=== PATIENT | female | born 1955 | race Two or more races ===

== ENCOUNTER 2023-02-24 10:08 | Outpatient (REF) | payer MEDICARE, MEDICAID, SELFPAY ==
--- NOTE | ~2023-02-24 | XR_ITS ---
EXAMINATION: XR LUMBOSACRAL SPINE CLINICAL INFORMATION: Back pain COMPARISON: None available. TECHNIQUE: Three views of the lumbosacral spine. FINDINGS: 5 nonrib-bearing lumbar-type vertebral bodies. No acute visible fracture or dislocation. Levocurvature of the mid lumbar spine. Grade 1-2 anterolisthesis of L4 and L5. Mild multilevel degenerative changes with disc space, osteophyte formation, and facet arthropathy. Vertebral body heights and spaces are otherwise maintained. Posterior elements are intact. Paraspinal soft tissues are unremarkable. Atherosclerotic calcifications abdominal aorta. Oval well-circumscribed density measuring 2.5 cm overlying the left mid abdomen, nonspecific and possibly representing renal calculus. XR/XR lumbar spine 2-3V IMPRESSION: 1. No acute visible fracture or dislocation. 2. Levocurvature of the mid lumbar spine. 3. Grade 1-2 anterolisthesis of L4 and L5. 4. Mild multilevel degenerative changes. 5. Oval well-circumscribed density measuring 2.5 cm overlying the left mid abdomen, nonspecific and possibly representing a renal calculus.
== END 2023-02-24 10:09 | disposition home or self-care (01) ==
LOC: HO.XRAY 10:08
PROVIDERS: PCP Internal Medicine; Visit Provider Registered Nurse
DX: M54.9 Dorsalgia, unspecified (principal)
CPT/HCPCS: 72100

== ENCOUNTER 2024-03-01 09:23 | Outpatient (REF) | payer MEDICARE, MEDICAID, SELFPAY ==
[2024-03-01 10:07] LABS: Hematocrit 45.5 % (37.0-47.0); Hemoglobin 15.5 g/dl (12.0-16.0); Mean Corpuscular HGB Conc 34.1 g/dl (31.0-35.0); Mean Corpuscular Hemoglobin 30.5 pg (27.0-33.0); Mean Corpuscular Volume 89.4 fL (80.0-98.0); Mean Platelet Volume 9.5 fL (9.4-12.3); Platelet Count 207 X10*3/uL (160-400); Red Blood Count 5.09 X10*6/uL (4.20-5.50); Red Cell Distribution Width 12.4 % (11.0-16.0)
[2024-03-01 10:49] LABS: Erythrocyte Sedimentation Rate 7 MM/HR (0-20)
[2024-03-01 10:50] LABS: Anion Gap 13 (12-20); Blood Urea Nitrogen 16 mg/dL (9-16); C Reactive Protein < 0.10 mg/dL (< or = 0.50); Calcium 9.9 mg/dL (8.4-10.2); Carbon Dioxide 24 mmol/L (22-29); Chloride 108 mmol/L (96-108); Estimated Glomerular Filt Rate > 60; Glucose Random 93 mg/dL (60-115); Magnesium 2.3 mg/dL (1.6-2.6); Phosphorus 3.6 mg/dL (2.7-4.5); Potassium 4.1 mmol/L (3.3-5.1); Sodium 141 mmol/L (135-145)
[2024-03-01 11:05] LABS: TSH reflex Free T4 0.97 uIU/mL (0.32-4.0)
== END 2024-03-01 09:24 | disposition home or self-care (01) ==
LOC: HO.LAB 09:23
PROVIDERS: PCP Internal Medicine; Visit Provider Registered Nurse
DX: R25.2 Cramp and spasm (principal)
CPT/HCPCS: 36415; 80048; 82550; 83735; 84100; 84443; 85027; 85652; 86140

== ENCOUNTER 2024-09-18 09:37 | Outpatient (REF) | payer MEDICARE, MEDICAID, SELFPAY ==
--- OUTSIDE RECORDS SUMMARY | 2024-09-18 10:02 | XMS_ITS | Encounter Summary ---
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 Report Medical Records [address] [place] [id number] Elsa Berman MD Social History Tobacco Use Types Packs/Day Years Used Date Smoking Tobacco: Never Smokeless Tobacco: Never Alcohol Use Standard Drinks/Week Comments Yes 0 (1 standard drink = 0.6 oz pur e alcohol) rare once a year Sex Assigned at Date Recorded Not on file Job Start Date Occupation Industry Not on file Not on file Not on file documented as of this encounter Plan of Treatment Not on file documented as of this encounter Visit Diagnoses Not on filedocumented in this encounter Care Teams Business Support Liaison Relationship Specialty Start Date End Date Page Hathaway MD PCP - General 12/29/07 10/26/21 Lizet Le MD [address] [place] [address] PCP - General Internal Medicine 10/27/21 documented as of this encounter
[2024-09-18 10:39] LABS: Estimated Average Glucose 131 mg/dL; Hemoglobin A1c % 6.2 % (<6.0); Total Hemoglobin (HGBA1C) 4059.9769 umol/L
== END 2024-09-18 09:38 | disposition home or self-care (01) ==
LOC: HO.LAB 09:37
PROVIDERS: PCP Internal Medicine; Visit Provider Registered Nurse
DX: R25.2 Cramp and spasm (principal); Z13.1 Encounter for screening for diabetes mellitus; G62.9 Polyneuropathy, unspecified
CPT/HCPCS: 36415; 82085; 82550; 83036

== ENCOUNTER 2024-10-04 12:44 | Outpatient (REF) | payer MEDICARE, MEDICAID, SELFPAY ==
--- NOTE | 2024-10-04 | EMG_ITS ---
Impression: Normal motor and sensory nerve conduction velocities in the upper extremities. Normal EMG in the right C5-T1 innervated muscles Please see detailed electrophysiological report MTDD
--- OUTSIDE RECORDS SUMMARY | 2024-10-04 13:39 | XMS_ITS | Clinical Summary ---
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 06/30/19 24 Active blood sugar diagnostic (FreeStyle Lite Strips) test strip 1 Lancet by extracorporeal route 2 (two) times a day. 12/22/19 24 Active blood-glucose meter kit Test blood sugar daily (fasting) 12/31/19 22 Active FREESTYLE LANCETS MISC USE 1 TO CHECK GLUCOSE ONCE DAILY DIRECTED 12/22/19 24 Active fluticasone propion-salmet Bailey (ADVAIR HFA) 230-21 mcg/actuation inhalerIndicat ions:COPD with asthma (CMS/HCC V24, CMS/HCC V28) Inhale 2 puffs by mouth 2 (two) times a day. 3 each 3 05/17/19 25 026 Active umeclidinium (Incruse Ellipta) 62.5 mcg/actuation inhalationIndi cations:COPD with asthma (CMS/HCC V24, CMS/HCC V28) Inhale 1 puff by mouth 1 (one) time each day. 3 each 3 05/17/19 25 026 Active albuterol HFA (Ventolin HFA) 90 mcg/actuation inhalerIndicat ions:COPD with asthma ([facility] V24, [facility] V28) Inhale 2 puffs by mouth every 6 (six) hours if needed for wheezing. 6.7 g 11 05/17/19 25 026 Active budesonide-for moteroL (Breyna) 160-4.5 mcg/actuation inhaler Inhale 2 puffs by mouth 2 (two) times a day. Rinse mouth with water after use to reduce aftertaste and incidence of candidiasis. Do not swallow. 1 each 12 05/30/19 25 026 Active atorvastatin (LIPITOR) 20 mg tablet Take 1 tablet (20 mg total) by mouth at bedtime. at bedtime. 90 tablet 1 06/29/19 25 Active lisinopril (PRINIVIL,ZEST RIL) 40 mg tablet Take 1 tablet (40 mg total) by mouth 1 (one) time each day. 90 each 1 06/29/19 25 Active amLODIPine (NORVASC) 5 mg tablet Take 1 tablet (5 mg total) by mouth 1 (one) time each day. 90 each 1 10/05/19 25 Active bisacodyL (DULCOLAX) 5 mg EC tablet Take 2 tablets by mouth right before beginning bowel prep. See instructions provided by the office 2 tablet 03/14/20 24 025 Discontin ued(Thera py completed ) Active Problems Problem Noted Date Diagnosed Date Microalbuminuria 12/31/2021 TB lung, latent 04/27/2018 Overview (01/27/2024): Per Dr. Hernandez: Chest CT scan without contrast for reevaluation of Lung parenchyma/nodule in March 2019, if is stable, no further surveillance is indicated 2. 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 Stage T1aNx - rad oncologist, Dr. Dominick Chauhan 11/2013: Davinci hysterectomy and BSO and radiation to cuff x 3; no chemo Ganglion cyst 11/13/2013 Vitamin D deficiency 11/30/2011 Cord compression ([facility] V24, [facility] V28) 06/2009 Herniation of cervical intervertebral disc 04/18 Hypertriglyceridemia 03/19/2009 HTN (hypertension), benign 02/26/2009 Encounters Date Type Department Care Team Description 10/04/2024 10:30 AM EDT Office Visit Adult Medicine [address] [address] Narayan Davenport PA HTN (hypertension), benign (Primary Dx) 08/08/2024 1:30 PM EDT Ancillary Procedure [facility] [address] [facility] [address] [place] [address] PICKERING (dyspnea on exertion) from Last 3 Months Immunizations Name Administration Dates Next Due H1N1 Inj Preservative Free 02/26/2009 Influenza Quadravalent, MDCK , 0.5ml, preservative free (Flucelvax) 6mo and older 12/17/2020,01/17/2019 Influenza Quadravalent, MDCK , 0.5ml, with preservative (Flucelvax) 6mo and older 01/05/2017 Influenza trivalent, 0.5mL ( Fluad) 65yo and older 12/11/2023,01/04/2023,12/17/2021 Influenza trivalent, 0.5mL, preservative free (Fluarix; FluLaval; Fluzone) ages 6mo and older (Afluria) 3 years and older 11/30/2019,01/04/2018,12/11/2015,2014,02/02/2014,12/16/2012,11/30/2011,0 12/19/2010,12/23/2009,02/26/2009, 008 Influenza trivalent, with preservative (Fluzone; Afluria) 6mo and older 12/06/2019 Pneumococcal conjugate 13 va lent (Prevnar 13, PCV13) 2mo and older 12/30/2021 Pneumococcal conjugate 20 va lent (Prevnar 20, PCV 20) 2mo and older 01/04/2023 Td Tetanus diptheria (Tdvax) 7yo and older 08/02/2018 Tdap Tetanus diptheria acell ular pertussis (Boostrix; Adacel) 7yo and older 08/18/2015,01/04/2008,01/04/2008 Zoster Live 2016 Surgical History Surgery Date Site/Laterality Comments ROBOTIC ASSISTED HYSTERECTOMY 12/19/2013 PROCEDURE: HISTORICAL ROBOTIC HYSTERECTOMY WITH OR WITHOUT BSO; COMMENT: endometrial adeno CA, Dr. Berman COLONOSCOPY 05/24/2008 PROCEDURE: HISTORICAL COLONOSCOPY; COMMENT: Up to cecum, good preparation, normal colon exam COLONOSCOPY 12/26/2018 PROCEDURE: HISTORICAL COLONOSCOPY; COMMENT: 5 mm polyps x 2: Hyperplastic x1, tubular adenoma x1. Medical History Medical History Date Comments Other and unspecified hyperlipidemia DX:Other and unspecified hyperlipidemia Ganglion cyst 11/13/2013 DX:Ganglion cyst Endometrial cancer (CMS/HCC V24, CMS/HCC V28) DX:Endometrial cancer (HCC) Esophageal reflux DX:Esophageal reflux Abdominal bloating DX:Abdominal bloating Family History Medical History Relation Name Comments Blindness Neg Hx Breast cancer Neg Hx Cataracts Neg Hx Colon cancer Neg Hx Glaucoma Neg Hx Macular degeneration Neg Hx Ovarian cancer Neg Hx Strabismus Neg Hx Relation Name Status Comments Father Mother Alive Alzheimer's Social History Tobacco Use Types Packs/Day Years Used Date Smoking Tobacco: Never Passive Smoke Exposure: Never Smokeless Tobacco: Never Tobacco Cessation:Counseling Given: Not Answered Alcohol Use Standard Drinks/Week Comments Yes 0 (1 standard drink = 0.6 oz pur e alcohol) socially Interpersonal Safety Answer Date Record ed Physical Abuse 03/29/2024 Verbal Abuse 03/29/2024 Comments No Sex and Gender Information Value Date Recorded Sex Assigned at Not on file Legal Sex Female 1:29 PM EST Gender Identity Not on file Sexual Orientation Not on file Obstetrics History Last Filed Vital Signs Vital Sign Reading Time Taken Comments Blood Pressure 140/92 10/04/2024 10:19 AM EDT Pulse 68 10/04/2024 10:19 AM EDT Temperature 36.2 C (97.2 F) 10/04/2024 10:19 AM EDT Respiratory Rate 12 10/04/2024 10:19 AM EDT Oxygen Saturation 95% 05/17/2024 8:45 AM EST Inhaled Oxygen Concentration - - Weight 82.1 kg (181 lb) 10/04/2024 10:19 AM EDT Height 167.6 cm (5' 6 ) 10/04/2024 10:19 AM EDT Body Mass Index 29.21 10/04/2024 10:19 AM EDT Plan of Treatment Upcoming Encounters Date Type Department Care Team (Late st Contact Info) Description 11/08/2024 9:00 AM EDT Appointment Radiology Department - [address] [address] 11/15/2024 8:30 AM EDT Ancillary Procedure Pulmonolgy [address] [phone] 11/15/2024 9:45 AM EDT Office Visit Pulmonol[address] [address] Racquel Galvez MD [address] [place] [phone] 01/17/2025 1:30 PM EDT Office Visit Adult Medicine [address] [phone] Lizet Le MD [address] [place] [phone] Health Maintenance Due Date Last Done Comments RSV Immunization Adult Patients (1 - Risk 60-74 years 1-dose series) 2016 Zoster Vaccines (1 of 2) 07/11/2016 2016 Hepatitis C Screening 02/28/2022 Medicare Annual Wellness Visit 02/28/2022 Social Influencers of Health Screening 02/28/2022 COVID-19 Vaccine ( season) 2023 03/08/2021, 08/09/2020, 07/19/2020 Depression Screening 03/22/2024 Influenza Vaccine (#1) 2024 4, 01/04/2023, 12/17/2021, Additional history exists Falls Risk Assessment 03/29/2025 03/29/2024 Hypertension/CHF/CAD Annual BMP Blood Test 06/28/2025 06/28/2024, 12/24/2023 Breast Cancer Screening 10/26/2025 10/27/19 24, 10/27/2023, 10/20/2022, Additional history exists DTaP,Tdap,and Td Vaccines (5 - Td or Tdap) 08/02/2028 08/02/2018, 08/18/2015, 01/04/2008, Additional history exists Cholesterol Screening (Lipid Panel) 12/23/2028 12/24/2023 Colorectal Cancer Screening: Colonoscopy 03/29/2029 03/29/2024 Osteoporosis Screening (Bone Density Screening) 02/04/2032 02/03/2022 Pneumococcal Vaccine: 50+ Years Completed 01/04/2023, 12/30/2021 HIB Vaccines Aged Out No longer eligi ble based on patient's age to complete this topic HPV Vaccines Aged Out No longer eligi ble based on patient's age to complete this topic Hepatitis A Vaccines Aged Out No long er eligible based on patient's age to complete this topic Hepatitis B Vaccines Aged Out No long er eligible based on patient's age to complete this topic IPV Vaccines Aged Out No longer eligi ble based on patient's age to complete this topic MMR Vaccines Aged Out No longer eligi ble based on patient's age to complete this topic Meningococcal ACWY Vaccine Aged Out N o longer eligible based on patient's age to complete this topic Meningococcal B Vaccine Aged Out No l onger eligible based on patient's age to complete this topic RSV Immunization Patients Under 20 months Aged Out No longer eligible based on patient's age to complete this topic Varicella Vaccines Aged Out No longer eligible based on patient's age to complete this topic Procedures Procedure Name Priority Date/Time Associated Diagnosis Comments TRANSTHORACIC ECHOCARDIOGRAM (TTE) COMPLETE Routine 08/08/2024 2:08 PM EDT PICKERING (dyspnea on exertion) BASIC METABOLIC PANEL Routine 06/28/2024 9:44 AM EDT HTN (hypertension), benign COLONOSCOPY Routine 03/29/2024 1:00 PM EST Personal history of colon polyps, unspecified SCREENING MAMMOGRAPHY BI 2-VIEW BREAST INC CAD Routine 10/27/2023 9:27 AM EDT Encounter for screening mammogram for malignant neoplasm of breast DXA BONE DENSITY STUDY 1+ SITS AXIAL SKEL Routine 02/03/2022 9:31 AM EST Asymptomatic menopausal state from Last 3 Months or Most Recently Relevant to Health Maintenance Results * (ABNORMAL) TRANSTHORACIC ECHOCARDIOGRAM (TTE) COMPLETE (08/08/2024 2:08 PM EDT) Left Atrium Minor Luning 5.8 cm CV PACS Left Atrium Major Luning 6.1 cm CV PACS LA Area Sys (A2C) 23 cm2 CV PACS LA Area Sys (A4C) 21 cm2 CV PACS LA Volume (BP) 67 mL CV PACS RA Area 13.5 cm2 CV PACS RA 2D Volume 33 mL CV PACS Aortic Sinus Valsalva 3.3 cm CV PACS Ascending Aorta 4.3 cm CV PACS IVC Proximal 1.9 cm CV PACS IVC Proximal 0.6 cm CV PACS IVSD 1.3(A) 0.6 - 0.9 cm CV PACS LVIDD 5.1 3.8 - 5.2 cm CV PACS LVIDS 3.2 2.2 - 3.5 cm CV PACS LVOT Diameter 2.1 cm CV PACS LVOT Mean Tomasz 0.9 m/s CV PACS LVOT Mean Grad 4 mmHg CV PACS LVOT Peak VTI 26.2 cm CV PACS LVOT Peak Tomasz 1.4 m/s CV PACS LVOT Peak Gradient 8 mmHg CV PACS LVPWD 1.1(A) 0.6 - 0.9 cm CV PACS MV E' Tissue Velocity Lateral 5 cm/s CV PACS MV E' Tissue Velocity Septal 4 cm/s CV PACS LVOT Area 3.5 cm2 CV PACS LVOT Stroke Volume 91 mL CV PACS E Wave Deceleration Time 275(A) 119 - 242 ms CV PACS MV Peak A Tomasz 0.90 m/s CV PACS MV Peak E Tomasz 0.70 m/s CV PACS PV Acceleration Time 63 ms CV PACS RV Diastolic Basal Dimension 3.3 2.5 - 4.1 cm CV PACS RV S' 11 cm/s CV PACS TAPSE 22 mm CV PACS E/E' Ratio Septal 18 CV PACS E/E' Ratio Averaged 16 CV PACS Relative Wall Thickness ratio 0.42 0.22 - 0.42 CV PACS FS 37 % CV PACS LV Mass 2D 237(A) 66 - 150 g CV PACS LVOT flow 312 mL/s CV PACS E/A Ratio 0.8 0.8 - 2.0 CV PACS E/E' Ratio Lateral 14 CV PACS BSA 1.96 m2 CV PACS LA Volume Index (BP) 34 mL/m2 CV PACS LVIDD Index 2.66 cm/m2 CV PACS LVIDS Index 1.67 cm/m2 CV PACS LV Mass Index 2D 126(A) 44 - 88 g/m2 CV PACS LVOT Stroke Index 0 mL/m2 CV PACS RA 2D Volume Index 17 15 - 27 mL/m2 CV PACS Ascending Aorta Index 2.24 cm/m2 CV PACS RV Free Wall Peak S' 11 cm/s CV PACS RA Major Luning 4.2 cm CV PACS RA Major Luning Index 2.2 2.2 - 2.8 cm/m2 CV PACS MV PHT 80 ms CV PACS Inferior Vena Cava Diameter At Inspiration 0.6 cm CV PACS IVC Inspiration Index 0.31 cm/m2 CV PACS Inferior Vena Cava Diameter At Expiration 1.9 cm CV PACS IVC Expiration Index 0.99 cm/m2 CV PACS Anatomical Region Laterality Modality Ultrasound Narrative 08/09/2024 12:26 PM EDT Left ventricle cavity size is normal. Left ventricular systolic function is in the normal range with an ejection fraction of 65-70%. No regional LV wall motion abnormalities noted. Left ventricle mild concentric hypertrophy. Right ventricle cavity is normal. Right ventricular systolic function is normal. The left atrium is mildly dilated. No hemodynamically significant valve disease. The ascending aorta is dilated (4.3 cm). Left Ventricle Left ventricle cavity size is normal. There is mild concentric hypertrophy. Systolic function is normal with an ejection fraction of 65-70%. There are no regional LV wall motion abnormalities. Indeterminate diastolic function. Right Ventricle Right ventricle cavity appears normal. Systolic function is normal. Left Atrium Left atrium cavity is mildly dilated. Right Atrium Right atrium cavity is normal. IVC/SVC Inferior vena cava structure is normal. RA pressures is estimated to be 3 mmHg (IVC diameter <21 mm and decreases >50% during inspiration). Mitral Valve The leaflets are mildly thickened. There is moderate annular calcification. There is mild regurgitation with a centrally directed jet. There is no significant stenosis noted. Tricuspid Valve Tricuspid valve structure is normal. Tricuspid regurgitation is inadequate for estimation of right ventricular systolic pressure. There is no significant tricuspid valve stenosis. Aortic Valve The aortic valve is trileaflet. The leaflets are not thickened and exhibit normal excursion. There is mild regurgitation with a centrally directed jet. There is no evidence of aortic valve stenosis. Pulmonic Valve The pulmonic valve was not well visualized. No significant pulmonic valve regurgitation. No significant pulmonary valve stenosis noted. Ascending Aorta The ascending aorta is dilated (4.3 cm). Pericardium Pericardium appears normal. There is no pericardial effusion. Study Details Overall the study quality was adequate. Racquel Galvez MD CV ECHO PROCEDURES Final Result * (ABNORMAL) Basic metabolic panel (06/28/2024 9:44 AM EDT) Sodium 138 133 - 145 mmol/L LAB CHEMISTRY METHOD 06/28/2024 2:41 PM [facility] Potassium 4.2 3.5 - 5.5 mmol/L LAB CHEMISTRY METHOD 06/28/2024 2:41 PM [facility] Chloride 106 96 - 110 mmol/L LAB CHEMISTRY METHOD 06/28/2024 2:41 PM [facility] CO2 27 21 - 32 mmol/L LAB CHEMISTRY METHOD 06/28/2024 2:41 PM [facility] Anion Gap 5 3 - 11 LAB CHEMISTRY METHOD 06/28/2024 2:41 PM [facility] Glucose 116(H) 70 - 100 mg/dL LAB CHEMISTRY METHOD 06/28/2024 2:41 PM EDT [facility] BUN 18 5 - 25 mg/dL LAB CHEMISTRY METHOD 06/28/2024 2:41 PM EDT [facility] Creatinine 0.73 0.50 - 1.10 mg/dL LAB CHEMISTRY METHOD 06/28/2024 2:41 PM EDT [facility] eGFR 90 >=60 mL/min/1. 73m2 LAB CHEMISTRY METHOD 06/28/2024 2:41 PM EDT [facility] Comment:Calculation based on the Chronic Kidney Disease Epidemiology Collaboration (CKD-EPI) equation refit without adjustment for race. BUN/Creatinine Ratio 24.7 LAB CHEMISTRY METHOD 06/28/2024 2:41 PM EDT [facility] Calcium 9.6 8.5 - 10.5 mg/dL LAB CHEMISTRY METHOD 06/28/2024 2:41 PM EDT [facility] Blood Venous blood specimen / Unknown Venipuncture / Unknown 06/28/2024 9:44 AM EDT 06/28/2024 9:44 AM EDT Narayan NAIDU LAB BLOOD ORDERABLES Final Res ult [facility] [address] [place] [address], * COLONOSCOPY Anesthesia - [facility]; [facility] ENDOSCOPY (03/29/2024 1:00 PM EST) Anatomical Region Laterality Modality Endoscopy 03/29/2024 12:4 5 PM EST Impressions 03/29/2024 1:06 PM EST - Three diminutive polyps in the transverse colon, removed with a jumbo cold forceps. Resected and retrieved. - Internal hemorrhoids. Recommendation: - Await pathology results. - Repeat colonoscopy in 5 years for surveillance. Narrative 03/29/2024 1:06 PM EST [facility] Patient Name: Luisa Sharma Procedure Date: 03/29/2024 12:45 PM Date of : 1955 Age: 68 Gender: Female Note Status: Finalized Attending MD: Greg Baerd MD, Procedure Date No Time: 03/29/2024 Procedure: Colonoscopy Indications: High risk colon cancer surveillance: Personal history of colonic polyps, Last colonoscopy: December 2018 Providers: Greg Beard MD Referring MD: Greg Beard MD Medicines: Monitored Anesthesia Care Complications: No immediate complications. Estimated blood loss: Minimal. Estimated Blood Loss: Estimated blood loss was minimal. Procedure: Pre-Anesthesia Assessment: - Prior to the procedure, a History and Physical was performed, and patient medications and allergies were reviewed. The patient is competent. The risks and benefits of the procedure and the sedation options and risks were discussed with the patient. All questions were answered and informed consent was obtained. Patient identification and proposed procedure were verified by the physician, the nurse, the mgmt specialist and the roadway technician in the pre-procedure area in the endoscopy suite. Mental Status Examination: alert and oriented. Airway Examination: normal oropharyngeal airway and neck mobility. Respiratory Examination: clear to auscultation. CV Examination: normal. Prophylactic Antibiotics: The patient does not require prophylactic antibiotics. Prior Anticoagulants: The patient has taken no anticoagulant or antiplatelet agents. ASA Grade Assessment: II - A patient with mild systemic disease. After reviewing the risks and benefits, the patient was deemed in satisfactory condition to undergo the procedure. The anesthesia plan was to use monitored anesthesia care (MAC). Immediately prior to administration of medications, the patient was re-assessed for adequacy to receive sedatives. The heart rate, respiratory rate, oxygen saturations, blood pressure, adequacy of pulmonary ventilation, and response to care were monitored throughout the procedure. The physical status of the patient was re-assessed after the procedure. After I obtained informed consent, the scope was passed under direct vision. Throughout the procedure, the patient's blood pressure, pulse, and oxygen saturations were monitored continuously. The Colonoscope was introduced through the anus and advanced to the cecum, identified by appendiceal orifice and ileocecal valve. The colonoscopy was performed without difficulty. The patient tolerated the procedure well. The quality of the bowel preparation was good. Findings: The perianal and digital rectal examinations were normal. Three sessile polyps were found in the transverse colon. The polyps were diminutive in size. These polyps were removed with a jumbo cold forceps. Resection and retrieval were complete. Estimated blood loss was minimal. Internal hemorrhoids were found during retroflexion. The hemorrhoids were Grade I (internal hemorrhoids that do not prolapse). Procedure Code(s): --- Professional --- 48621, Colonoscopy, flexible; with biopsy, single or multiple Diagnosis Code(s): --- Professional --- D12.3, Benign neoplasm of transverse colon (hepatic flexure or splenic flexure) CPT copyright 2020 [employer]. All rights reserved. The codes documented in this report are preliminary and upon workforce management manager review may be revised to meet current compliance requirements. Greg Beard MD 03/29/2024 1:06:14 PM This report has been signed electronically.Greg Beard MD Number of Addenda: 0 Note Initiated On: 03/29/2024 12:45 PM Scope Withdrawal Time: 0 hours 11 minutes 11 seconds Scope In: 12:49:32 PM Scope Out: 1:04:02 PM Endoscopy Department at [facility] - [address] [place] [phone] Procedure Note Greg Beard MD - 03/29/2024 [facility] Patient Name: Luisa Sharma Procedure Date: 03/29/2024 12:45 PM Date of : 1955 Age: 68 Gender: Female Note Status: Finalized Attending MD: Greg Beard MD, Procedure Date No Time: 03/29/2024 Procedure: Colonoscopy Indications: High risk colon cancer surveillance: Personalhistory of colonic polyps, Last colonoscopy: December 2018 Providers: Greg Beard MD Referring MD: Greg Beard MD Medicines: Monitored Anesthesia Care Complications: No immediate complications. Estimated blood loss: Minimal. Estimated Blood Loss: Estimated blood loss was minimal. Procedure: Pre-Anesthesia Assessment: - Prior to the procedure, a History and Physicalwas performed, and patient medications and allergieswere reviewed. The patient is competent. The risks and benefits of the procedure and the sedation optionsand risks were discussed with the patient. Allquestions were answered and informed consent was obtained. Patient identification and proposed procedure were verified by the physician, the nurse, theanesthetist and the roadway technician in the pre-procedure area in the endoscopy suite. Mental Status Examination: alertand oriented. Airway Examination: normal oropharyngeal airway and neck mobility. Respiratory Examination: clear to auscultation. CV Examination: normal. Prophylactic Antibiotics: The patient does notrequire prophylactic antibiotics. Prior Anticoagulants: The patient has taken no anticoagulant or antiplatelet agents. ASA Grade Assessment: II - A patient withmild systemic disease. After reviewing the risks and benefits, the patient was deemed in satisfactory condition to undergo the procedure. The anesthesia plan was to use monitored anesthesia care (MAC). Immediately prior to administration of medications, the patient was re-assessed for adequacy to receive sedatives. The heart rate, respiratory rate, oxygen saturations, blood pressure, adequacy of pulmonary ventilation, and response to care were monitored throughout the procedure. The physical status ofthe patient was re-assessed after the procedure. After I obtained informed consent, the scope was passed under direct vision. Throughout theprocedure, the patient's blood pressure, pulse, and oxygen saturations were monitored continuously. The Colonoscope was introduced through the anus and advanced to the cecum, identified by appendiceal orifice and ileocecal valve. The colonoscopy was performed without difficulty. The patient tolerated the procedure well. The quality of the bowel preparation was good. Findings: The perianal and digital rectal examinations were normal. Three sessile polyps were found in the transverse colon. The polyps were diminutive in size. These polyps were removed with a jumbo cold forceps. Resection and retrieval were complete. Estimatedblood loss was minimal. Internal hemorrhoids were found duringretroflexion. The hemorrhoids were Grade I (internal hemorrhoids that do not prolapse). Procedure Code(s): --- Professional --- 16207, Colonoscopy, flexible; with biopsy, singleor multiple Diagnosis Code(s): --- Professional --- D12.3, Benign neoplasm of transverse colon (hepatic flexure or splenic flexure) CPT copyright 2020 [employer]. All rights reserved. The codes documented in this report are preliminary and upon workforce management manager reviewmay be revised to meet current compliance requirements. Greg Beard MD 03/29/2024 1:06:14 PM This report has been signed electronically.Greg Beard MD Number of Addenda: 0 Note Initiated On: 03/29/2024 12:45 PM Scope Withdrawal Time: 0 hours 11 minutes 11 seconds Scope In: 12:49:32 PM Scope Out: 1:04:02 PM Endoscopy Department at [facility] - [address] [place] [phone] IMPRESSION: - Three diminutive polyps in the transverse colon, removed with a jumbo cold forceps. Resected and retrieved. - Internal hemorrhoids. Recommendation: - Await pathology results. - Repeat colonoscopy in 5 years for surveillance. us Greg Beard MD GI~PROCEDURE ORDERABLES Fin al Result * SCREENING MAMMOGRAPHY BI 2-VIEW BREAST INC CAD (10/27/2023 9:27 AM EDT) Anatomical Region Laterality Modality Radiographic Hanh ging 10/20/2022 7:47 AM EDT Narrative 10/27/2023 5:17 PM EDT This is a summary report. The complete report is available in the patient's medical record. If you cannot access the medical record, please contact the sending organization for a detailed fax or copy. Exam: Screening mammogram Findings: Digital bilateral full-field screening mammography is performed with tomosynthesis and interpreted with the aid of computer-aided detection. Comparison is made with 10/20/2022 and as far back as 10/03/2019. Breast parenchyma is composed of scattered fibroglandular densities. No new suspicious mass, architectural distortion, or suspicious calcifications. Impression: No mammographic evidence of malignancy. BI-RADS 1 - negative Procedure Note Emelia Dumont MD - 01/05/2024 This is a summary report. The complete report is available in thepatient's medical record. If you cannot access the medical record, pleasecontact the sending organization for a detailed fax or copy. Exam: Screening mammogram Findings: Digital bilateral full-field screening mammography is performedwith tomosynthesis and interpreted with the aid of computer-aideddetection. Comparison is made with 10/20/2022 and as far back as10/03/2019. Breast parenchyma is composed of scattered fibroglandular densities. Nonew suspicious mass, architectural distortion, or suspiciouscalcifications. Impression: No mammographic evidence of malignancy. BI-RADS 1 - negative Lizet Le MD IMG XR PROCEDURES Final Result * DXA BONE DENSITY STUDY 1+ SITS AXIAL SKEL (02/03/2022 9:31 AM EST) Anatomical Region Laterality Modality Bone Densitometr y 12/30/2021 9:05 AM EDT Narrative 02/03/2022 4:23 PM EST BONE DENSITY (DEXA) Lumbar Spine T-score is -0.4. (SD relative to 20-29 y/o adult) Z-score is 1.4. (SD relative to age matched peers) This is considered normal by WHO criteria. Left Hip T-score is -0.6. Z-score is 0.9. This is considered normal by WHO criteria. Lateral view of the spine demonstrates vertebral heights to mean maintained. IMPRESSION: This patient is considered to have normal bone density by WHO criteria. The [facility] Department of Internal Medicine recommends using National Osteoporosis Foundation (NOF) guidelines in treatment decisions related to osteoporosis. NOF guidelines suggest considering treatment for postmenopausal women and men aged 50 or older presenting with the following: History of hip or vertebral fracture. T-score = -2.5 (DXA) at the femoral neck, total hip, or spine, after appropriate evaluation to exclude secondary causes. Low bone mass (T-score between -1.0 and -2.5 at the femoral neck or spine) AND a 10-year probability of a hip fracture = 3% OR a 10-year probability of a major osteoporosis-related fracture = 20% based on the [place]-adapted WHO algorithm Please note that all treatment decisions require clinical judgment and consideration of individual patient factors, including patient preferences, co-morbidities, previous drug use, risk factors not captured in the FRAX model (e.g., frailty, falls, vitamin D deficiency, increased bone turnover, interval significant decline in bone density) and possible under- or over-estimation of fracture risk by FRAX. Optional alternative screening schedule based on kaleigh Flores., [facility] April 09, 2011 for patients with osteopenia (based on hip BMD T-score) is as follows: * advanced osteopenia (T scores -2.00 to -2.49), BMD testing every year * moderate osteopenia (T scores -1.50 to -1.99), BMD testing every 5 years mild osteopenia or normal BMD (T scores -1.50 and higher), BMD testing every 15 years Procedure Note Ekaterina Wills MD - 04/26/2023 BONE DENSITY (DEXA) Lumbar Spine T-score is -0.4. (SD relative to 20-29 y/o adult) Z-score is 1.4. (SD relative to age matched peers) This is considered normal by WHO criteria. Left Hip T-score is -0.6. Z-score is 0.9. This is considered normal by WHO criteria. Lateral view of the spine demonstrates vertebral heights to meanmaintained. IMPRESSION: This patient is considered to have normal bone density by WHO criteria. The [facility] Department of Internal Medicine recommendsusing National Osteoporosis Foundation (NOF) guidelines in treatment decisions related toosteoporosis. NOF guidelines suggest considering treatment for postmenopausal women and menaged 50 or older presenting with the following: History of hip or vertebral fracture. T-score = -2.5 (DXA) at the femoral neck, total hip, or spine, afterappropriate evaluation to exclude secondary causes. Low bone mass (T-score between -1.0 and -2.5 at the femoral neck or spine)AND a 10-year probability of a hip fracture = 3% OR a 10-year probability of a majorosteoporosis-related fracture = 20% based on the [place]-adapted WHO algorithm Please note that all treatment decisions require clinical judgment andconsideration of individual patient factors, including patient preferences, co- morbidities,previous drug use, risk factors not captured in the FRAX model (e.g., frailty, falls, vitaminD deficiency, increased bone turnover, interval significant decline in bone density) andpossible under- or over-estimation of fracture risk by FRAX. Optional alternative screening schedule based on kaleigh Flores., [facility] for patients with osteopenia (based on hip BMD T-score) is as follows: * advanced osteopenia (T scores -2.00 to -2.49), BMD testing every year * moderate osteopenia (T scores -1.50 to -1.99), BMD testing every 5years mild osteopenia or normal BMD (T scores -1.50 and higher), BMD testingevery 15 years Magaly NAIDU IMG DXA PROCEDURES Final Result from Last 3 Months or Most Recently Relevant to Health Maintenance Insurance MEDICARE [place] Advance Directives Documents on File Type Date Recorded 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
== END 2024-10-04 12:45 | disposition home or self-care (01) ==
LOC: HO.NEURO 12:44
PROVIDERS: PCP Internal Medicine; Visit Provider Psychiatry & Neurology Neurology
DX: G62.9 Polyneuropathy, unspecified (principal)
CPT/HCPCS: 95885; 95913

== ENCOUNTER → 2024-10-04 12:50 | Outpatient (BNV) | payer MEDICARE, MEDICAID, SELFPAY | PROVIDERS: PCP Internal Medicine; Visit Provider Psychiatry & Neurology Neurology | DX: M79.621 Pain in right upper arm (principal); M79.622 Pain in left upper arm | CPT/HCPCS: 95886; 95913 ==

== ENCOUNTER 2024-12-20 09:12 | Outpatient (AMB) | payer MEDICARE, MEDICAID, SELFPAY ==
--- OUTSIDE RECORDS SUMMARY | 2024-12-15 09:00 | XMS_ITS | Encounter Summary ---
Author Organization [employer] Address [address] [place] [address] Care Team Providers Care Environmental Health Technologist Name Role Phone Lizet Le MD Primary Care Provider [phone] Reason for Visit * Reason Comments Hospital Follow-up Encounter Details Date Type Department Care Team (Late st Contact Info) Description 12/15/2024 9:00 AM EDT Office Visit Adult Medicine [address] [phone] Lizet Le MD [address] [place] [phone] Hospital discharge follow-up (Primary Dx); Acute hypoxemic respiratory failure (CMS/HCC V24, CMS/HCC V28); HTN (hypertension), benign; Mixed hyperlipidemia; Ascending aorta dilatation (CMS/HCC V24) Social History Tobacco Use Types Packs/Day Years Used Date Smoking Tobacco: Never Passive Smoke Exposure: Never Smokeless Tobacco: Never Tobacco Cessation:Counseling Given: Not Answered Alcohol Use Standard Drinks/Week Comments Yes 0 (1 standard drink = 0.6 oz pur e alcohol) socially Interpersonal Safety Answer Date Record ed Physical Abuse Unrecognized value 12/02/2024 Verbal Abuse Unrecognized value 12/02/2024 Comments No Sex and Gender Information Value Date Recorded Sex Assigned at Not on file Legal Sex Female 1:29 PM EST Gender Identity Not on file Sexual Orientation Not on file documented as of this encounter Last Filed Vital Signs Vital Sign Reading Time Taken Comments Blood Pressure 126/78 12/15/2024 9:18 AM EDT Pulse 72 12/15/2024 9:18 AM EDT Temperature 36.2 C (97.2 F) 12/15/2024 9:18 AM EDT Respiratory Rate 14 12/15/2024 9:18 AM EDT Oxygen Saturation 96% 12/15/2024 9:18 AM EDT Inhaled Oxygen Concentration - - Weight 80.3 kg (177 lb) 12/15/2024 9:18 AM EDT Height 165.1 cm (5' 5 ) 12/15/2024 9:18 AM EDT Body Mass Index 29.45 12/15/2024 9:18 AM EDT documented in this encounter Functional Status * Are you deaf or do you have serious difficulty hearing? Answer Date of Assessment Author No 12/01/2024 6:44 PM EDT Carla Calderon RN * Are you blind or do you have serious difficulty seeing, even when wearing glasses? Answer Date of Assessment Author No 12/01/2024 6:44 PM EDT Carla Calderon RN * Do you have serious difficulty walking or climbing stairs? Answer Date of Assessment Author No 12/01/2024 6:44 PM EDT Carla Calderon RN * Do you have serious difficulty dressing or bathing? Answer Date of Assessment Author No 12/01/2024 6:44 PM EDT Carla Calderon RN * Because of a physical, mental, or emotional condition, do you have serious difficulty doing errandsalone such as visiting the doctor? Answer Date of Assessment Author No 12/01/2024 6:44 PM EDT Carla Calderon RN documented as of this encounter Mental Status * Because of a physical, mental, or emotional condition, do you have serious difficulty concentrating, remembering, or making decisions? (5 years old or older) Answer Entry Date Author No 12/01/2024 6:44 PM EDT Carla Calderon RN documented in this encounter Progress Notes * Lizet Le MD - 12/15/2024 9:00 AM EDT CHIEF COMPLAINT: Hospital Follow-up IDENTIFIER: Casie Sharma is a 69 y.o. old female. HPI: Patient presents today for re-evaluation after hospitalization for acute respiratory failure with hypoxia/chronic bronchitis, left hydronephrosis, lung nodule, ascending aorta dilatation/hypertension, hyperlipidemia, prediabetes at [facility] from 12/01 until 12/03. Patient is limited by her son at today's visit. Patient is a 69-year-old female who presented to the ER for shortness of breath. Patient was noted to have O2 sat of 91% on room air requiring O2 supplementation. Underwent EKG which showed PACs, nonspecific T wave abnormality, troponins normal, BNP normal. Respiratory viral panel was negative. Underwent CT chest without contrast multifocal ground glass pulmonary nodules, treated with steroids, bronchodilators, oxygen supplementation with improvement in symptoms. She was able to be weaned off oxygen. Patient's Incruse Ellipta was switched to Dulera as Incruse Ellipta was noted to be contributing to respiratory issues. She was advised outpatient follow-up with pulmonology. Patient had outpatient follow-up with pulmonology and started on Breztri 2 puffs twice a day. Patient reports that she is doing better, using albuterol inhaler and nebulization as needed. She has not been able to get the pessary from the pharmacy as they are out of stock and they are waiting for stock to come in. Left hydronephrosis - Patient was incidentally noted to have left-sided hydronephrosis underwent kidney ultrasound which showed bilateral mild hydronephrosis with bilateral renal calculi measuring 9 mm on right and 22 mm on left. - Patient asymptomatic - Outpatient follow-up with urology, has appointment next week with [facility] Lung nodules - Known finding stable when compared to CAT scan from 10/27/2024 - Following with pulmonology Ascending aorta dilatation Hypertension -Stable at 4.4 cm - On amlodipine and lisinopril Information was extracted from the discharge notes . The history was reviewed for accuracy and confirmed by myself. I have reconciled the current and discharge meds. ROS: See HPI PAST MEDICAL HISTORY: Patient Active Problem List Diagnosis Date Noted Ascending aorta dilatation (CMS/HCC V24) 12/15/2024 Asthma exacerbation 12/01/2024 Microalbuminuria 12/31/2021 TB lung, latent 04/27/2018 Borderline diabetes 06/30/2016 Radiculopathy of cervical spine 04/22/2016 Heartburn 01/16/2015 [place] [place] [facility] [place] 12/07/2013 Ganglion cyst 11/13/2013 Vitamin D deficiency 11/30/2011 Cord compression [place] [place] [facility] [place] 04/25/2009 Herniation of cervical intervertebral disc 04/18/2009 Hypertriglyceridemia 03/19/2009 HTN (hypertension), benign 02/26/2009 Past Surgical History: Procedure Laterality Date COLONOSCOPY 05/24/2008 PROCEDURE: HISTORICAL COLONOSCOPY; COMMENT: Up to cecum, good preparation, normal colon exam COLONOSCOPY 12/26/2018 PROCEDURE: HISTORICAL COLONOSCOPY; COMMENT: 5 mm polyps x 2: Hyperplastic x1, tubular adenoma x1. ROBOTIC ASSISTED HYSTERECTOMY 12/19/2013 PROCEDURE: HISTORICAL ROBOTIC HYSTERECTOMY WITH OR WITHOUT BSO; COMMENT: endometrial adeno [place], Dr. Berman SOCIAL HISTORY: Social History Tobacco Use Smoking status: Never Passive exposure: Never Smokeless tobacco: Never Substance Use Topics Alcohol use: Yes Comment: socially FAMILY HISTORY: Family History Problem Relation Name Age of Onset Blindness Neg Hx Cataracts Neg Hx Glaucoma Neg Hx Macular degeneration Neg Hx Strabismus Neg Hx Colon cancer Neg Hx Ovarian cancer Neg Hx Breast cancer Neg Hx Family Status Relation Name Status Neg Hx (Not Specified) Mother Alive Alzheimer's Father No partnership data on file MEDICATIONS DISCONTINUED/REORDERED: Medications Discontinued During This Encounter Medication Reason predniSONE (DELTASONE) 10 mg tablet Therapy completed cefpodoxime (VANTIN) 200 mg tablet Therapy completed ACTIVE MEDICATIONS: Outpatient Medications Marked as Taking for the 12/15/24 encounter (Office Visit) with Lizet Le MD Medication Sig Dispense Refill albuterol 2.5 mg /3 mL (0.083 %) nebulizer solution Take 3 mL (2.5 mg total) by nebulization every 6 (six) hours if needed for wheezing. 75 mL 11 albuterol HFA (Ventolin HFA) 90 mcg/actuation inhaler Inhale 2 puffs by mouth every 6 (six) hours if needed for wheezing. 6.7 g 11 amitriptyline (ELAVIL) 10 mg tablet Take 1 tablet (10 mg total) by mouth at bedtime. at bedtime amLODIPine (NORVASC) 5 mg tablet Take 1 tablet (5 mg total) by mouth 1 (one) time each day. 90 each1 atorvastatin (LIPITOR) 20 mg tablet TAKE 1 TABLET BY MOUTH AT BEDTIME 90 tablet 1 blood-glucose meter kit Test blood sugar daily (fasting) xhnwpieoix-iispguzq-oblcyjhebn (Breztri Aerosphere) 160-9-4.8 mcg/actuation HFA aerosol inhaler inhaler Inhale 2 puffs by mouth 2 (two) times a day. 96.3 g 3 cetirizine (ZyrTEC) 10 mg tablet Take 1 tablet (10 mg total) by mouth 1 (one) time each day. diclofenac (VOLTAREN) 50 mg EC tablet Take 1 tablet (50 mg total) by mouth 2 (two) times a day if needed. fluticasone propionate (FLONASE) 50 mcg/actuation nasal spray Administer 2 sprays into affected nostril(s). FREESTYLE LANCETS MISC USE 1 TO CHECK GLUCOSE ONCE DAILY DIRECTED lisinopril (PRINIVIL,ZESTRIL) 40 mg tablet Take 1 tablet by mouth once daily 90 tablet 0 ALLERGIES: Latex PHYSICAL EXAM: Blood pressure 126/78, pulse 72, temperature 36.2 ??C (97.2 ??F), temperature source Temporal, resp. rate 14, height 1.651 m (65 ), weight 80.3 kg (177 lb), SpO2 96%. Body mass index is 29.45 kg/m??.Plan is deferred until next visit APPEARANCE: Alert and in no acute distress EYES: PERRLA, conjunctiva and sclera normal HEART: RRR with normal S1 and S2, no murmurs, no gallops, no JVD appreciated LUNG: clear to auscultation bilaterally BACK: no pain to palpation EXTREMITIES: Extremities warm and well perfused without clubbing, cyanosis, or edema NEURO: Awake, alert and oriented x 3 and Normal gait SKIN: Skin color, texture, turgor normal. No rashes or lesions. PSYCH: Stable mood. Denies SI/HI LABS: Lab Results Component Value Date WBC 5.3 12/02/2024 HGB 14.0 12/02/2024 HCT 41.7 12/02/2024 MCV 88.3 12/02/2024 PLT 235 12/02/2024 Lab Results Component Value Date NA 141 12/02/2024 K 4.1 12/02/2024 CL 108 12/02/2024 CO2 26 12/02/2024 GLUCOSE 186 (H) 12/02/2024 BUN 16 12/02/2024 CREATININE 0.74 12/02/2024 CALCIUM 9.3 12/02/2024 PROT 7.2 12/01/2024 ALBUMIN 4.1 12/01/2024 BILITOT 0.9 12/01/2024 AST 31 12/01/2024 ALT 55 12/01/2024 MG 2.1 12/01/2024 ALKPHOS 93 12/01/2024 EGFR 88 12/02/2024 IMAGING: IMPRESSION: 1. Hospital discharge follow-up 2. Acute hypoxemic respiratory failure (CMS/HCC V24, CMS/HCC V28) 3. HTN (hypertension), benign 4. Mixed hyperlipidemia 5. Ascending aorta dilatation (CMS/HCC V24) PLAN: Patient is a 69-year-old female who presented to the ER for shortness of breath. Patient was noted to have O2 sat of 91% on room air requiring O2 supplementation. Underwent EKG which showed PACs, nonspecific T wave abnormality, troponins normal, BNP normal. Respiratory viral panel was negative. Underwent CT chest without contrast multifocal ground glass pulmonary nodules, treated with steroids, bronchodilators, oxygen supplementation with improvement in symptoms. She was able to be weaned off oxygen. Patient's Incruse Ellipta was switched to Dulera as Incruse Ellipta was noted to be contributing to respiratory issues. She was advised outpatient follow-up with pulmonology. Patient had outpatient follow-up with pulmonology and started on Breztri 2 puffs twice a day. Patient reports that she is doing better, using albuterol inhaler and nebulization as needed. She has not been able to get the pessary from the pharmacy as they are out of stock and they are waiting for stock to come in. Left hydronephrosis - Patient was incidentally noted to have left-sided hydronephrosis underwent kidney ultrasound which showed bilateral mild hydronephrosis with bilateral renal calculi measuring 9 mm on right and 22 mm on left. - Patient asymptomatic - Outpatient follow-up with urology, has appointment next week with [facility] Lung nodules - Known finding stable when compared to CAT scan from 10/27/2024 - Following with pulmonology Ascending aorta dilatation Hypertension -Stable at 4.4 cm - On amlodipine and lisinopril Medication and lab orders: No orders of the defined types were placed in this encounter. Other orders: None Lizet Le MD on 12/15/2024 at 9:45 AM EDT documented in this encounter Plan of Treatment Upcoming Encounters Date Type Department Care Team (Late st Contact Info) Description 01/17/2025 1:30 PM EDT Office Visit Adult Medicine [address] [phone] Lizet Le MD [address] [place] [address] 04/09/2025 9:00 AM EST Office Visit Pulmonology - [address] [phone] Racquel Galvez MD [address] [phone] documented as of this encounter Visit Diagnoses Diagnosis Hospital discharge follow-up- Primary Other follow-up examination Acute hypoxemic respiratory failure (CMS/HCC V24, CMS/HCC V28) HTN (hypertension), benign Essential hypertension, benign Mixed hyperlipidemia Ascending aorta dilatation (CMS/HCC V24) Thoracic aneurysm without mention of rupture documented in this encounter Discontinued Medications Medication Sig Discontinue Reason Start Date End Da te predniSONE (DELTASONE) 10 mg tablet Take 4 tablets (40 mg total) by mouth 1 (one) time each day for 2 days, THEN 3 tablets (30 mg total) 1 (one) time each day for 2 days, THEN 2 tablets (20 mg total) 1 (one) time each day for 2 days, THEN 1 tablet (10 mg total) 1 (one) time each day for 2 days. Therapy completed 12/03/2024 12/15/2024 cefpodoxime (VANTIN) 200 mg tablet Take 1 tablet (200 mg total) by mouth 2 (two) times a day for 5 days. Therapy completed 12/03/2024 12/15/2024 documented as of this encounter Care Teams Environmental Health Technologist Relationship Specialty Start Date End Date Lizet Le MD [address] [place] [phone] PCP - General Internal Medicine 10/27/21 documented as of this encounter
--- NOTE | 2024-12-20 09:19 | MHC.OFFVIS ---
Intake Visit Reasons: AFTER EMG/PN Counter Pocket Trimmer Required: Yes Counter Pocket Trimmer Services: Counter Pocket Trimmer Offered & Declined (son to translate) Accompanied by: Son Allergies No Known Allergies Allergy (Verified 12/20/24 09:19) Medication List - Last Reconciled 12/20/24 by Katyh Vigil CNP albuterol sulfate mg inhalation Q6H PRN amitriptyline 10 mg PO BEDTIME amlodipine 5 mg PO DAILY atorvastatin 20 mg PO BEDTIME fviwlowclx-hqqxuehv-ykkkbtjiiu 160-9-4.8 mcg/actuation (Breztri Aerosphere) inhalations inhalation cetirizine mg PO diclofenac sodium 50 mg PO BID PRN ipratropium bromide 17 mcg/actuation (Atrovent HFA) 2 puffs inhalation QID lisinopril 40 mg PO DAILY nystatin 1 appl topical TID HPI Comments Details: 69-year-old woman with prediabetes, painful cramping in legs since 2019, and numbness/tingling in feet beginning around 09/2022 with NCV/EMG revealing early peripheral neuropathy. She was doing about the same. She reports continuing numbness to left hand and last four fingers. She feels left hand is getting weaker, sometimes dropping objects. She occasionally has pain in left hand that wakes her up at night. No neck or shoulder pain. Numbness and tingling to left toes is unchanged. Leg cramps are better. No falls. She is diclofenac as needed for back pain. [facility] Medical History (Updated 12/20/24 @ 09:59 by Kathy Vigil CNP) Prediabetes Hyperlipidemia Hypertension Review of Systems Const Denies chills, Denies daytime sleepiness, Reports difficulty sleeping, Denies fatigue, Denies fever(s), Denies frequent falls, Denies headache(s), Denies increased appetite, Denies poor appetite, Denies snoring, Denies weakness, Denies weight gain and Denies weight loss Eyes Denies loss of vision ENT Denies vertigo, Denies dizziness, Denies headache(s) and Reports neck pain Card Denies chest pain at rest, Denies chest pain with activity, Denies syncope, Denies leg edema, Denies palpitations, Denies dyspnea and Denies dyspnea on exertion Resp Denies cough, Denies dyspnea, Denies dyspnea on exertion and Denies snoring GI Denies abdominal pain, Denies constipation, Denies heartburn, Denies diarrhea and Denies nausea Denies urinary frequency, Denies urinary incontinence and Denies urinary urgency Musc Denies abnormal gait, Denies back pain, Denies myalgias, Reports arthralgias, Reports neck pain, Reports numbness and Reports tingling Neuro Denies abnormal gait, Denies vertigo, Denies dizziness, Denies syncope, Denies frequent falls, Denies headache(s), Denies lack of coordination, Denies loss of vision, Denies memory loss, Reports numbness, Denies Other visual disturbances, Denies restless legs, Denies seizure-like activity, Reports tingling, Denies paresthesias, Denies tremor(s) and Denies weakness Psych Denies anxiety, Denies depression, Denies auditory hallucinations, Denies memory loss and Denies visual hallucinations Endo Denies fatigue and Denies palpitations Physical Exam Const Other: General Appearance:? normal, in no acute distress. Heart:? S1, S2 normal, no murmurs. Lungs:? clear anteriorly and posteriorly. Musculoskeletal:? normal. Extremities:? no edema. Psych:? alert, oriented, cognitive function intact, cooperative with exam. Neuro Other: Abnormal Neurological Findings:?Absent reflexes in LE. 5-/5 L hims coder. Mental Status: alert and oriented X 3. Normal attention, orientation, memory, and affect. Cranial Nerves: Pupils are equal, round, and reactive to light. External ocular muscles are intact. Visual sainz are full, no ptosis. Face is symmetrical, no facial weakness or droop. Facial sensations are normal. Tongue protrudes in midline. Palate elevates symmetrically. Shoulder shrugging is normal Motor Examination: As above. Sensory Exam: Normal light touch, temperature, pinprick, vibration, and joint-position sensations. Rhomberg sign is absent. Coordination: No ataxia. No titubation. Gait Exam: Within normal limits. Cerebellar Signs: Elcpuz-si-lgjg is okay. Extrapyramidal System: No tremor, rigidity with normal facial expressions. No bradykinesia. No bradyphrenia. Normal arm swing and posture. No propulsion or retropulsion. Speech: Normal. Results Reviewed Results Reviewed: Laboratory Tests 09/18/24 10:00 Hemoglobin A1c % 6.2 H Total Creatine Kinase 390 H Aldolase 9.0 H NCV/EMG UE 10/04/2024: Normal motor and sensory nerve conduction velocities in the upper extremities. Normal EMG in the right C5-T1 innervated muscles 01/18/23 NCV/EMG ALL Normal motor and sensory nerve conduction velocities in the upper extremities. Prolonged motor distal latencies suggestive of early neuropathy. Normal EMG in the left L4-S1 innervated muscles. 02/2023 Lumbar spine XR: mild degenerative changes 02/2024 labs ok, mildly elevated CPK (182) Assessment & Plan Assessment & Plan (1) Peripheral neuropathy: Code(s): G62.9 - Polyneuropathy, unspecified Category: Medical Qualifiers: Peripheral neuropathy type: polyneuropathy, unspecified Qualified Code(s): G62.9 - Polyneuropathy, unspecified Plan: NCV/EMG UE results reviewed - normal. Lab results reviewed - A1c slightly elevated, follow up with PCP for further management. Reviewed labs ordered. Continue amitriptyline 10mg 1 tablet at bedtime. (2) Lumbar disc disease: Code(s): M51.9 - Unspecified thoracic, thoracolumbar and lumbosacral intervertebral disc disorder Category: Medical Plan: Continue diclofenac 50mg 1 tablet as needed twice a day for pain. Plan Meds tried: gabapentin (GI upset), amitriptyline (GI upset with 20mg), meloxicam did not help back pain Orders: Orders Immunofixation Pnl, Serum Today G62.9 - Polyneuropathy, unspecified Creatine Kinase Total Today G62.9 - Polyneuropathy, unspecified Lyme IgG/IgM w/reflex to WB Today G62.9 - Polyneuropathy, unspecified Vitamin B12 and Folate Today G62.9 - Polyneuropathy, unspecified QUOC Reflex Titer and Pattern Today G62.9 - Polyneuropathy, unspecified Aldolase Today G62.9 - Polyneuropathy, unspecified Medications: New amitriptyline 10 mg PO BEDTIME 90 tabs 1RF 90 days diclofenac sodium 50 mg PO BID PRN 60 tabs 2RF pain 30 days Coding Level of Care Code Est Pt Level 4 (64380) Diagnoses Peripheral polyneuropathy G62.9 Peripheral neuropathy type: polyneuropathy, unspecified Lumbar disc disease M51.9
--- OUTSIDE RECORDS SUMMARY | 2024-12-20 09:57 | XMS_ITS | Encounter Summary ---
Author Organization [employer] Address [address] [place] [address] Care Team Providers Care Mortgage Branch Manager Name Role Phone Lizet Le MD Primary Care Provider [phone] Reason for Visit * Reason Onset Date Comments Medication 11/30/2024 Encounter Details Date Type Department Care Team ([facility] st Contact Info) Description 11/30/2024 Telephone Pulmonology - [place] 175 [facility] [address] [place] [phone] Racquel Galvez MD [address] [phone] Social History Tobacco Use Types Packs/Day Years Used Date Smoking Tobacco: Never Passive Smoke Exposure: Never Smokeless Tobacco: Never Alcohol Use Standard [...] on file documented as of this encounter Functional Status * Calculated C-SSRS Risk Score (Lifetime/Recent) Answer Date of Assessment Author No Risk Indicated 12/01/2024 5:49 PM EDT Selene Woody RN * [place] Suicide Severity Rating Scale (Screener/Recent Self-Report) Question Answer Date of Assessment Author 1. Wish to be (Past 1 Month) No 5:49 PM EDT Selene Woody RN 2. Non-Specific Active Suici izzy Thoughts (Past 1 Month) No 12/01/2024 5:49 PM EDT Selene Woody, REJI 6. Suicidal Behavior (Lifetime) No 5:49 PM EDT Selene Woody RN documented as of this encounter Progress Notes * Brittney Ritter MA - 11/30/2024 10:59 AM EDT Called [facility] [employer]. Was informed patient is eligible for Medicare Plan B coverage for Albuterol. I reached out to pharmacy to have them run the prescription under Medicare plan B and was given the confirmation that the patient is covered for Albuterol. * Hiral Renae MA - 11/30/2024 10:42 AM EDT Called [facility] [employer]. Was informed patient is eligible for Medicare Plan B coverage for Albuterol. I reached out to pharmacy to have them run the prescription under Medicare plan B and was given the confirmation that the patient is covered for Albuterol. * Vandana Alicea - 11/30/2024 9:48 AM EDT [employer] rx fax received notice of denial of medicare part d for albuterol sulfate Attached to encounter documented in this encounter Plan of Treatment Upcoming Encounters Date Type Department Care Team (Late st Contact Info) Description 01/17/2025 1:30 PM EDT Office Visit Adult Medicine [address] [phone] Lizet Le MD [address] [place] [address] 04/09/2025 9:00 AM EST Office Visit Pulmonology - [place] 175 [facility] [address] [place] [phone] Racquel Galvez MD 175 [facility] [address] [place] [address] documented as of this encounter Visit Diagnoses Not on filedocumented in this encounter Additional Health Concerns Infection Onset Date Last Indicated Resolved Time Respiratory Rule-Out 12/01/2024 12/01/2024 025 10:47 PM EDT COVID-19 Rule-Out 12/01/2024 12/01/2024 12/01/2024 10:47 PM EDT Respiratory Rule-Out 12/02/2024 12/02/2024 025 12:06 PM EDT documented as of this encounter Care Teams Mortgage Branch Manager Relationship Specialty Start Date End Date Lizet Le MD [address] [place] [phone] PCP - General Internal Medicine 10/27/21 documented as of this encounter
--- OUTSIDE RECORDS SUMMARY | 2024-12-20 09:57 | XMS_ITS ---
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 Hernandez: Chest CT scan without contrast for reevaluation of Lung parenchyma/nodule in March 2019, if is stable, no further surveillance is indicated 2. 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 Stage T1aNx - rad oncologist, Dr. Dominick Chauhan 11/2013: Davinci hysterectomy and BSO and radiation to cuff x 3; no chemo Ganglion cyst 11/13/2013 Vitamin D deficiency 11/30/2011 Cord compression ([facility] V24, [facility] V28) 06/2009 Herniation of cervical intervertebral disc 04/18 Hypertriglyceridemia 03/19/2009 HTN (hypertension), benign 02/26/2009 Current Treatment and Therapy Plans No current plan information found. Past Treatment and Therapy Plans No past plan information found. Lifetime Dose Tracking * Chemical Lifetime Dose Automatic Entry Manual Entr y CTDIvol 13.84 mGy 13.84 mGy 0 mGy
--- OUTSIDE RECORDS SUMMARY | 2024-12-20 09:57 | XMS_ITS | Encounter Summary ---
Author Organization [facility] [place] [address] Care Team Providers Care Tug Boat Captain Name Role Phone Lizet Le MD Primary Care Provider [phone] Reason for Visit * Reason Onset Date Comments Medication Problem 11/21/2024 Encounter Details Date Type Department Care Team ([facility] st Contact Info) Description 11/21/2024 Telephone Pulmonology - [place] 175 [facility] [address] [place] [phone] Racquel Galvez MD [address] [address] Social History Tobacco Use Types Packs/Day Years Used Date Smoking Tobacco: Never Passive Smoke Exposure: Never Smokeless Tobacco: Never Alcohol Use Standard Drinks/Week Comments Yes 0 (1 standard drink = 0.6 oz pur e alcohol) socially Interpersonal Safety Answer Date Record ed Physical Abuse Unrecognized value 03/29/2024 Verbal Abuse Unrecognized value 03/29/2024 Comments No Sex and Gender Information Value Date Recorded Sex Assigned at Not on file Legal Sex Female 1:29 PM EST Gender Identity Not on file Sexual Orientation Not on file documented as of this encounter Progress Notes * Racquel Galvez MD - 11/23/2024 5:54 PM EDT Please leave message with sonHans. * Brittney Ritter MA - 11/23/2024 3:31 PM EDT Unable to leave message vm not set up * Racquel Galvez MD - 11/23/2024 8:20 AM EDT Similar to other message, please inform patient Spiriva, has been changed to Atrovent 2 puffs 4 times a day, per health insurance's medication formulary. * Marifer Hogan - 11/21/2024 9:30 AM EDT Patient son called to inform provider that patient insurance did not cover her SPIRIVA RESPIMAT - and patient does not do well with powder inhaler please advice and send alternative documented in this encounter Plan of Treatment Upcoming Encounters Date Type Department Care Team (Late st Contact Info) Description 01/17/2025 1:30 PM EDT Office Visit Adult Medicine [address] [phone] Lizet Le MD [address] [place] [address] 04/09/2025 9:00 AM EST Office Visit Pulmonology - [place] [address] [phone] Racquel Galvez MD [address] [address] documented as of this encounter Visit Diagnoses Not on filedocumented in this encounter Additional Health Concerns Infection Onset Date Last Indicated Resolved Time Respiratory Rule-Out 12/01/2024 12/01/2024 025 10:47 PM EDT COVID-19 Rule-Out 12/01/2024 12/01/2024 12/01/2024 10:47 PM EDT Respiratory Rule-Out 12/02/2024 12/02/2024 025 12:06 PM EDT documented as of this encounter Care Teams Tug Boat Captain Relationship Specialty Start Date End Date Lizet Le MD [address] [place] [phone] PCP - General Internal Medicine 10/27/21 documented as of this encounter
--- OUTSIDE RECORDS SUMMARY | 2024-12-20 09:57 | XMS_ITS ---
Author Name [facility] Organization Unknown Care Team Organization Name Specialty Phone Email Start Date End Da te [facility] 11/08/2024 [facility] Lizet Le Primary Care 03/03/2023 024 [facility] Magaly Hernandez Primary Care 08/28/20222023 [facility] Page Hathaway Primary Care 01/27/202210/20
--- OUTSIDE RECORDS SUMMARY | 2024-12-20 09:58 | XMS_ITS ---
Author Organization [facility] Address [address] [place] [address] Phone Care Team Providers Care Bottom Finisher Name Role Phone Lizet Le MD Primary Care Provider [phone] Transitional Care Management Status:Ongoing (Active) Start date:12/03/2024 Enrollment date:12/04/2024 Enrollment reason:Identified using hospital discharge data Related social drivers of health:Housing Instability, Food Access & Nutrition, Access to Healthcare, Health Literacy, Financial Risk, Transportation, Social Isolation, Food Risk, Dependent Care, Education, Employment and Income, [place] [facility] Literacy, Living Situation Case Team Name Relationship Phone Nadja Nice LPN(Responsible Staff) Care Manag er [phone] Continued Care and Services Coordination
--- OUTSIDE RECORDS SUMMARY | 2024-12-20 09:58 | XMS_ITS | Clinical Summary ---
Author Organization [facility] Address [address] [place] [address] Phone Care Team Providers Care Juvenile Justice Specialist Name Role Phone Lizet Le MD Primary Care Provider Allergies Active Allergy Reactions Criticality Noted Date Comments Latex Rash Low 05/29/2014 Medications fluticasone propionate (FLONASE) 50 mcg/actuation nasal spray Administer 2 sprays into affected nostril(s). 024 Active blood-glucose meter kit Test blood sugar daily (fasting) 022 Active FREESTYLE LANCETS MISC USE 1 TO CHECK GLUCOSE ONCE DAILY DIRECTED 024 Active albuterol HFA (Ventolin HFA) 90 mcg/actuation inhalerIndicati ons:COPD with asthma ([facility] V24, [facility] V28) Inhale 2 puffs by mouth every 6 (six) hours if needed for wheezing. 6.7 g 11 025 2025 Active amLODIPine (NORVASC) 5 mg tablet Take 1 tablet (5 mg total) by mouth 1 (one) time each day. 90 each 1 025 Active albuterol 2.5 mg /3 mL (0.083 %) nebulizer solutionIndicat ions:COPD exacerbation ([facility] V24, [facility] V28) Take 3 mL (2.5 mg total) by nebulization every 6 (six) hours if needed for wheezing. 75 mL 11 025 2025 Active amitriptyline (ELAVIL) 10 mg tablet Take 1 tablet (10 mg total) by mouth at bedtime. at bedtime Active diclofenac (VOLTAREN) 50 mg EC tablet Take 1 tablet (50 mg total) by mouth 2 (two) times a day if needed. Active cetirizine (ZyrTEC) 10 mg tablet Take 1 tablet (10 mg total) by mouth 1 (one) time each day. Active budesonide-glyc opyr-formoterol (Breztri Aerosphere) 160-9-4.8 mcg/actuation HFA aerosol inhaler inhalerIndicati ons:COPD with asthma ([facility] V24, [facility] V28),Lung nodules Inhale 2 puffs by mouth 2 (two) times a day. 96.3 g 3 025 2025 Active lisinopril (PRINIVIL,ZESTR IL) 40 mg tablet Take 1 tablet by mouth once daily 90 tablet Active atorvastatin (LIPITOR) 20 mg tablet TAKE 1 TABLET BY MOUTH AT BEDTIME 90 tablet 1 Active blood sugar diagnostic (FreeStyle Lite Strips) test strip 1 Lancet by extracorporeal route 2 (two) times a day. 024 2024 Discontinued fluticasone propion-salmete roL (ADVAIR HFA) 230-21 mcg/actuation inhalerIndicati ons:COPD with asthma ([facility] V24, [facility] V28) Inhale 2 puffs by mouth 2 (two) times a day. 3 each 3 025 2024 Discontinued umeclidinium (Incruse Ellipta) 62.5 mcg/actuation inhalationIndic ations:COPD with asthma ([facility] V24, [facility] V28) Inhale 1 puff by mouth 1 (one) time each day. 3 each 3 02/26/2024 Discontinued(S top Taking at Discharge) budesonide-form oteroL (Breyna) 160-4.5 mcg/actuation inhaler Inhale 2 puffs by mouth 2 (two) times a day. Rinse mouth with water after use to reduce aftertaste and incidence of candidiasis. Do not swallow. 1 each 025 2024 Discontinued atorvastatin (LIPITOR) 20 mg tablet Take 1 tablet (20 mg total) by mouth at bedtime. at bedtime. 90 tablet 1 025 2024 Discontinued lisinopril (PRINIVIL,ZESTR IL) 40 mg tablet Take 1 tablet (40 mg total) by mouth 1 (one) time each day. 90 each 025 2024 Discontinued tiotropium (Spiriva Respimat) 2.5 mcg/actuation inhalation sprayIndication s:COPD with asthma (CMS/HCC V24, CMS/HCC V28) Inhale 2 puffs by mouth 1 (one) time each day. 1 each 025 2024 Discontinued ipratropium HFA (Atrovent HFA) 17 mcg/actuation inhaler Inhale 2 puffs by mouth 4 (four) times a day. 38.7 g 3 025 2024 Discontinued predniSONE (DELTASONE) 10 mg tablet Take 4 tablets (40 mg total) by mouth 1 (one) time each day for 2 days, THEN 3 tablets (30 mg total) 1 (one) time each day for 2 days, THEN 2 tablets (20 mg total) 1 (one) time each day for 2 days, THEN 1 tablet (10 mg total) 1 (one) time each day for 2 days. 20 each 025 2024 Discontinued(T herapy completed) cefpodoxime (VANTIN) 200 mg tablet Take 1 tablet (200 mg total) by mouth 2 (two) times a day for 5 days. 10 each 025 2024 Discontinued(T herapy completed) mometasone-form oterol (DULERA 100) 100-5 mcg/actuation inhaler Inhale 2 puffs by mouth 2 (two) times a day. Rinse mouth with water after use to reduce aftertaste and incidence of candidiasis. Do not swallow. 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 Stage T1aNx - rad oncologist, Dr. Dominick Chauhan 11/2013: Davinci hysterectomy and BSO and radiation to cuff x 3; no chemo Ganglion cyst 11/13/2013 Vitamin D deficiency 11/30/2011 Cord compression ([facility] V24, [facility] V28) 06/2009 Herniation of cervical intervertebral disc 04/18 Hypertriglyceridemia 03/19/2009 HTN (hypertension), benign 02/26/2009 Encounters Date Type Department Care Team Description 12/15/2024 9:00 AM EDT Office Visit Adult Medicine [address] [phone] Lizet Le MD Hospital discharge follow-up (Primary Dx); Acute hypoxemic respiratory failure ([facility] V24, [facility] V28); HTN (hypertension), benign; Mixed hyperlipidemia; Ascending aorta dilatation ([facility] V24) 12/08/2024 8:45 AM EDT Office Visit Pulmonology - [place] [address] [phone] Racquel Galvez MD COPD with asthma ([facility] V24, [facility] V28) (Primary Dx); Lung nodules 12/01/2024 5:58 PM EDT - 12/03/2024 9:44 AM EDT Hospital Encounter [facility] [address] [place] [address] Flaco Ventura MD Jones, Christopher, MD Santoyo-Pache co, Omar D, MD Acute hypoxic respiratory failure ([facility] V24, [facility] V28) (Primary Dx); Shortness of breath; Moderate asthma with exacerbation, unspecified whether persistent; Chronic lung disease Discharge Disposition: Home or Self Care 11/30/2024 Telephone Pulmonology - [place] [address] [phone] Racquel Galvez MD 11/23/2024 Telephone Pulmonology [facility] [address] [phone] Racquel Galvez MD 11/21/2024 Telephone Pulmonology - [place] [address] [phone] Racquel Galvez MD 11/21/2024 Telephone Pulmonology [address] [address] Racquel Galvez MD 11/21/2024 Telephone Pulmonology - [place] [address] [address] Racquel Galvez MD 11/16/2024 9:00 AM EDT - 11/16/2024 11:59 PM EDT Hospital Encounter CT Scan - [address] [phone] Lung nodules Discharge Disposition: Home or Self Care 11/15/2024 9:45 AM EDT Office Visit Pulmonology [address] [phone] Racquel Galvez MD COPD exacerbation ([facility] [place], [facility] V28) (Primary Dx); COPD with asthma ([facility] [place]24, [facility] V28); Lung nodules; PICKERING (dyspnea on exertion); TB lung, latent 11/15/2024 8:30 AM EDT Ancillary Procedure Pulmonology - [place] [facility] [address] [place] [address] COPD with asthma ([facility] [place]24, [facility] V28) 11/08/2024 8:17 AM EDT - 11/08/2024 11:59 PM EDT Hospital Encounter Radiology Department [address] [phone] Encounter for screening mammogram for breast cancer Discharge Disposition: Home or Self Care 10/04/2024 10:30 AM EDT Office Visit Adult Medicine [address] [phone] Narayan Davenport PA HTN (hypertension), benign (Primary Dx) from Last 3 Months Immunizations Immunization Administration Dates Next Due H1N1 Inj Preservative [...] Ganglion cyst 11/13/2013 DX:Ganglion cyst Endometrial cancer ([facility] V24, [facility] V28) DX:Endometrial cancer ([facility]) Esophageal reflux DX:Esophageal reflux Abdominal bloating DX:Abdominal [...] Sexual Orientation Not on file Obstetrics History Para Term AB IAB SAB Ectopic Multiple Livin g Live Births 1 1 1 1 Date Outcome GA Total Labor Labor/2nd/3rd Weight Sex Type Anes PTL Cha A1 A5 Name Clin Term Last Filed Vital Signs Vital Sign Reading [...] Mass Index 29.45 12/15/2024 9:18 AM EDT Plan of Treatment Upcoming Encounters Date Type Department Care Team (Late st Contact Info) Description 01/17/2025 1:30 PM EDT [facility] [address] [place] [address] Lizet Le MD [address] [place] [address] 04/09/2025 9:00 AM EST Office Visit Pulmonology - [place] [address] [phone] Racquel Galvez MD [address] [address] Health Maintenance Due Date Last Done Comments RSV Immunization Adult Patients (1 - Risk 60-74 years 1-dose series) 2016 Zoster Vaccines (1 of 2) 07/11/2016 2016 Hepatitis C Screening 02/28/2022 Medicare Annual Wellness Visit 02/28/2022 Social Influencers of Health Screening 02/28/2022 Depression Screening 03/22/2024 COVID-19 Vaccine ( season) 2024 03/08/2021, 08/09/2020, 07/19/2020 Influenza Vaccine (#1) 2024 , 01/04/2023, 12/17/2021, Additional history exists Hypertension/CHF/CAD Annual BMP Blood Test 12/02/2025 12/02/2024, 12/01/2024, 06/28/2024, Additional history exists Falls Risk Assessment 12/03/2025 12/03/2024 Breast Cancer Screening 11/08/2026 11/09/19, 10/27/2023, 10/27/2023, Additional history exists DTaP,Tdap,and Td Vaccines (5 [...] Procedure Name Priority Date/Time Associated Diagnosis Comments ECG ANNOTATED 12/04/2024 HOME O2 EVAL (DESATURATION SCREEN) Routine 12/03/2024 7:29 AM EDT PEP THERAPY Routine 12/02/2024 4:02 PM EDT PEP THERAPY Routine 12/02/2024 4:02 PM EDT PEP THERAPY Routine 12/02/2024 4:02 PM EDT US RETROPERITONEAL COMPLETE Routine 12/02/2024 2:15 PM EDT RESPIRATORY VIRUS PANEL MOLECULAR STUDY Routine 12/02/2024 10:36 AM EDT OXYGEN THERAPY, ADULT Routine 12/02/2024 8:09 AM EDT OXYGEN THERAPY, ADULT Routine 12/02/2024 8:09 AM EDT HOME O2 EVAL (DESATURATION SCREEN) Routine 12/02/2024 8:01 AM EDT CBC WITH AUTO DIFFERENTIAL Routine 12/02/2024 4:51 AM EDT CBC AND DIFFERENTIAL Routine 12/02/2024 4:51 AM EDT BASIC METABOLIC PANEL Routine 12/02/2024 4:51 AM EDT RENE URINE CULTURE TUBE Routine 12/01/2024 11:26 PM EDT URINALYSIS WITH REFLEX MICROSCOPIC AND CULTURE Routine 12/01/2024 11:26 PM EDT URINALYSIS WITH REFLEX MICROSCOPIC AND CULTURE Routine 12/01/2024 11:26 PM EDT CULTURE URINE Routine 12/01/2024 11:26 PM EDT [id number], RSV, FLU A AND B QUALITATIVE RT-PCR, INTERNAL LAB STAT 12/01/2024 9:29 PM EDT TROPONIN I HIGH SENSITIVITY Timed 12/01/2024 8:[address] CHEST WO CONTRAST STAT 12/01/2024 7:36 PM EDT PROCALCITONIN STAT Add-on 12/01/2024 6:41 PM EDT C-REACTIVE PROTEIN STAT Add-on 12/01/2024 6: 41 PM EDT CBC WITH AUTO DIFFERENTIAL STAT 12/01/2024 6:41 PM EDT LIPASE STAT 12/01/2024 6:41 PM EDT COMPREHENSIVE METABOLIC PANEL STAT 12/01/2024 6:41 PM EDT CBC AND DIFFERENTIAL STAT 12/01/2024 6:41 PM EDT B-TYPE NATRIURETIC PEPTIDE STAT 12/01/2024 6:41 PM EDT MAGNESIUM STAT 12/01/2024 6:41 PM EDT TROPONIN I HIGH SENSITIVITY Timed 12/01/2024 6:41 PM EDT ECG 12-LEAD STAT 12/01/2024 6:[address] CHEST WO CONTRAST Routine 11/16/2024 9:25 AM EDT Lung nodules PULMONARY FUNCTION TESTING Routine 11/15/2024 9:01 AM EDT COPD with asthma (CMS/HCC V24, CMS/HCC V28) MG MAMMO DIGITAL SCREENING W FERMÍN BILAT Routine 11/08/2024 8:55 AM EDT Encounter for screening mammogram for breast cancer COLONOSCOPY Routine 03/29/2024 1:00 PM EST Personal history of colon polyps, unspecified DXA BONE DENSITY STUDY 1+ SITS AXIAL SKEL Routine 02/03/2022 9:31 AM EST Asymptomatic menopausal state from Last 3 Months or Most Recently Relevant to Health Maintenance Results * ECG-Annotated (12/04/2024) us Provider Onbase MD ECG ORDERABLES Final Result * US Retroperitoneal Complete (12/02/2024 2:15 PM EDT) Anatomical Region Laterality Modality Body Ultrasound 12/02/2024 3:24 PM EDT Impressions 12/02/2024 3:35 PM EDT MILD BILATERAL HYDRONEPHROSIS. BILATERAL RENAL CALCULI. NO URETERAL JETS VISUALIZED THE BLADDER. CONSIDER CT OF THE ABDOMEN/PELVIS TO BETTER EVALUATE. -------- FINAL REPORT -------- Dictated By: ALEXANDER ALFARO Dictated Date: 12/02/2024 15:24 ET Assigned Physician: ALEXANDER ALFARO Reviewed and Electronically Signed By: ALEXANDER ALFARO Signed Date: 12/02/2024 15:35 ET Workstation ID: [id number] Transcribed By: Self Edit Transcribed Date: 12/02/2024 15:24 ET Narrative 12/02/2024 3:35 PM EDT PROCEDURE: US RETROPERITONEAL COMPLETE INDICATION: Hydronephrosis TECHNIQUE: 2-D rene scale, color Doppler ultrasound of the kidneys and bladder. COMPARISON: No priors available. FINDINGS: Right kidney measures 10.3 cm in length. Left kidney measures 11.7 cm in length. Mild bilateral hydronephrosis. No solid renal mass. Bilateral renal calculi measuring 9 mm on the right and 22 mm on the left. No ureteral jets visualized at the bladder. Procedure Note Alexander Alfaro MD - 12/02/2024 PROCEDURE: US RETROPERITONEAL COMPLETE INDICATION: Hydronephrosis TECHNIQUE: 2-D rene scale, color Doppler ultrasound of the kidneys andbladder. COMPARISON: No priors available. FINDINGS: Right kidney measures 10.3 cm in length. Left kidney qihjrmps47.7 cm in length. Mild bilateral hydronephrosis. No solid renal mass. Bilateral renal calculi measuring 9 mm on the right and 22 mm on theleft. No ureteral jets visualized at the bladder. IMPRESSION: MILD BILATERAL HYDRONEPHROSIS. BILATERAL RENAL CALCULI. NO URETERAL JETS VISUALIZED THE BLADDER. CONSIDER CT OF THE ABDOMEN/PELVIS TO BETTER EVALUATE. -------- FINAL REPORT -------- Dictated By: ALEXANDER ALFARO Dictated Date: 12/02/2024 15:24 ET Assigned Physician: ALEXANDER ALFARO Reviewed and Electronically Signed By: ALEXANDER ALFARO Signed Date: 12/02/2024 15:35 ET Workstation ID: [id number] Transcribed By: Self Edit Transcribed Date: 12/02/2024 15:24 ET Matty NA[place]U [place] US PROCEDURES Final R esult * Respiratory virus panel molecular study (12/02/2024 10:36 AM EDT) Pathologist [facility] Adenovirus Detection by PCR Not Detected Not Detected LAB MICROBIOLOGY METHOD 12/02/2024 12:06 PM EDT [facility] Influenza A PCR Not Detected Not Detected LAB MICROBIOLOGY METHOD 12/02/2024 12:06 PM EDT [facility] Influenza B PCR Not Detected Not Detected LAB MICROBIOLOGY METHOD 12/02/2024 12:06 PM EDT [facility] Coronavirus 229E Not Detected Not Detected LAB MICROBIOLOGY METHOD 12/02/2024 12:06 PM EDT [facility] Coronavirus HKU1 Not Detected Not Detected LAB MICROBIOLOGY METHOD 12/02/2024 12:06 PM EDT [facility] Coronavirus OC43 Not Detected Not Detected LAB MICROBIOLOGY METHOD 12/02/2024 12:06 PM EDT [facility] Coronavirus NL63 Not Detected Not Detected LAB MICROBIOLOGY METHOD 12/02/2024 12:06 PM EDT [facility] Parainfluenza Virus 1 Not Detected Not Detected LAB MICROBIOLOGY METHOD 12/02/2024 12:06 PM EDT [facility] Parainfluenza Virus 2 Not Detected Not Detected LAB MICROBIOLOGY METHOD 12/02/2024 12:06 PM EDT [facility] Parainfluenza Virus 3 Not Detected Not Detected LAB MICROBIOLOGY METHOD 12/02/2024 12:06 PM EDT [facility] Parainfluenza Virus 4 Not Detected Not Detected LAB MICROBIOLOGY METHOD 12/02/2024 12:06 PM EDT [facility] RSV PCR Not Detected Not Detected LAB MICROBIOLOGY METHOD 12/02/2024 12:06 PM EDT [facility] Human Metapneumovirus A and B Not Detected Not Detected LAB MICROBIOLOGY METHOD 12/02/2024 12:06 PM EDT [facility] Rhinovirus/Entero virus Not Detected Not Detected LAB MICROBIOLOGY METHOD 12/02/2024 12:06 PM EDT [facility] Bordetella pertussis Not Detected Not Detected LAB MICROBIOLOGY METHOD 12/02/2024 12:06 PM EDT [facility] Bordetella parapertussis Not Detected Not Detected LAB MICROBIOLOGY METHOD 12/02/2024 12:06 PM EDT [facility] Mycoplasma pneumo by PCR Not Detected Not Detected LAB MICROBIOLOGY METHOD 12/02/2024 12:06 PM EDT [facility] Chlamydia pneumoniae Not Detected Not Detected LAB MICROBIOLOGY METHOD 12/02/2024 12:06 PM EDT [facility] SARS COV-2 Not Detected Not Detected LAB MICROBIOLOGY METHOD 12/02/2024 12:06 PM EDT [facility] Swab Both anterior nares / Unknown Non-blood Collection / Unknown 12/02/2024 10:36 AM EDT 12/02/2024 10:43 AM EDT Narrative [facility] - 12/02/2024 12:06 PM EDT Testing was performed using the [employer] Respiratory Pathogen PCR Assay. All results must be correlated with the clinical findings. Results should not be used as the sole basis for diagnosis. False Negative results may occur from the presence of sequence variants in the region targeted by the assay or the presence of inhibitors. Results may be affected by concurrent antiviral/antimicrobial therapy or levels of organisms that are below the limit of detection. us Duncan Adler MD LAB MICROBIOLOGY - GEN ERAL ORDERABLES Final Result [facility] [address] [place] [address], * (ABNORMAL) CBC auto differential (12/02/2024 4:51 AM EDT) Only the most recent of2 resultswithin the time period is included. WBC 5.3 4.8 - 10.8 K/mcL LAB HEMETOLOGY METHOD 12/02/2024 5:54 AM [facility] RBC 4.70 3.80 - 4.80 M/mcL LAB HEMETOLOGY METHOD 12/02/2024 5:54 AM [facility] Hemoglobin 14.0 11.5 - 16.0 g/dL LAB HEMETOLOGY METHOD 12/02/2024 5:54 AM [facility] Hematocrit 41.7 35.0 - 47.0 % LAB HEMETOLOGY METHOD 12/02/2024 5:54 AM [facility] MCV 88.3 79.0 - 98.0 FL LAB HEMETOLOGY METHOD 12/02/2024 5:54 AM [facility] MCH 29.7 27.0 - 32.0 pcg LAB HEMETOLOGY METHOD 12/02/2024 5:54 AM [facility] MCHC 33.6 32.0 - 37.0 g/dL LAB HEMETOLOGY METHOD 12/02/2024 5:54 AM [facility] RDW 13.0 11.0 - 15.0 % LAB HEMETOLOGY METHOD 12/02/2024 5:54 AM [facility] Platelets 235 130 - 400 K/mcL LAB HEMETOLOGY METHOD 12/02/2024 5:54 AM [facility] MPV 9.5 7.0 - 11.0 FL LAB HEMETOLOGY METHOD 12/02/2024 5:54 AM [facility] NRBC 0.0 <1.0 % LAB HEMETOLOGY METHOD 12/02/2024 5:54 AM [facility] NRBC Absolute 0.00 <0.10 K/mcL LAB HEMETOLOGY METHOD 12/02/2024 5:54 AM [facility] Neutrophils Relative 88.3 % LAB HEMETOLOGY METHOD 12/02/2024 5:54 AM [facility] Lymphocytes Relative 9.4 % LAB HEMETOLOGY METHOD 12/02/2024 5:54 AM [facility] Monocytes Relative 0.9 % LAB HEMETOLOGY METHOD 12/02/2024 5:54 AM [facility] Eosinophils Relative 0.2 % LAB HEMETOLOGY METHOD 12/02/2024 5:54 AM [facility] Basophils Relative 0.4 % LAB HEMETOLOGY METHOD 12/02/2024 5:54 AM [facility] Immature Granulocytes Relative 0.8 % LAB HEMETOLOGY METHOD 12/02/2024 5:54 AM [facility] Neutrophils Absolute 4.71 1.50 - 7.00 K/mcL LAB HEMETOLOGY METHOD 12/02/2024 5:54 AM [facility] Lymphocytes Absolute 0.50(L) 1.00 - 5.00 K/mcL LAB HEMETOLOGY METHOD 12/02/2024 5:54 AM [facility] Monocytes Absolute 0.05(L) 0.20 - 1.00 K/mcL LAB HEMETOLOGY METHOD 12/02/2024 5:54 AM [facility] Eosinophils Absolute 0.01 0.00 - 0.50 K/mcL LAB HEMETOLOGY METHOD 12/02/2024 5:54 AM [facility] Basophils Absolute 0.02 0.00 - 0.20 K/mcL LAB HEMETOLOGY METHOD 12/02/2024 5:54 AM [facility] Immature Granulocytes Absolute 0.04(H) 0.00 - 0.03 K/mcL LAB HEMETOLOGY METHOD 12/02/2024 5:54 AM [facility] Blood Venous blood specimen / Unknown Venipuncture / Unknown 12/02/2024 4:51 AM EDT 12/02/2024 5:31 AM EDT us Drew Ellison MD LAB BLOOD ORDERABLES Final Result [facility] [address] [place] [address], [place] [phone] * (ABNORMAL) Basic metabolic panel (12/02/2024 4:51 AM EDT) Sodium 141 133 - 145 mmol/L LAB CHEMISTRY METHOD 12/02/2024 5:58 AM [facility] Potassium 4.1 3.5 - 5.5 mmol/L LAB CHEMISTRY METHOD 12/02/2024 5:58 AM [facility] Chloride 108 96 - 110 mmol/L LAB CHEMISTRY METHOD 12/02/2024 5:58 AM [facility] CO2 26 21 - 32 mmol/L LAB CHEMISTRY METHOD 12/02/2024 5:58 AM [facility] Anion Gap 7 3 - 11 LAB CHEMISTRY METHOD 12/02/2024 5:58 AM [facility] Glucose 186(H) 70 - 100 mg/dL LAB CHEMISTRY METHOD 12/02/2024 5:58 AM [facility] BUN 16 5 - 25 mg/dL LAB CHEMISTRY METHOD 12/02/2024 5:58 AM [facility] Creatinine 0.74 0.50 - 1.10 mg/dL LAB CHEMISTRY METHOD 12/02/2024 5:58 AM [facility] eGFR 88 >=60 mL/min/1. 73m2 LAB CHEMISTRY METHOD 12/02/2024 5:58 AM [facility] Comment:Calculation based on the Chronic Kidney Disease Epidemiology Collaboration (CKD-EPI) equation refit without adjustment for race. BUN/Creatinine Ratio 21.6 LAB CHEMISTRY METHOD 12/02/2024 5:58 AM [facility] Calcium 9.3 8.5 - 10.5 mg/dL LAB CHEMISTRY METHOD 12/02/2024 5:58 AM EDT [facility] Blood Venous blood specimen / Unknown Venipuncture / Unknown 12/02/2024 4:51 AM EDT 12/02/2024 5:31 AM EDT us Drew Ellison MD LAB BLOOD ORDERABLES Final Result [facility] [address] [place] [address], [place] [phone] * (ABNORMAL) Urinalysis with reflex microscopic and culture (12/01/2024 11:26 PM EDT) Specific [place] Urine 1.015 1.003 - 1.030 LAB URINALYSIS - AUTOMATED METHOD 12/01/2024 11:58 PM [facility] pH, Urine 6.0 5.0 - 8.0 pH LAB URINALYSIS - AUTOMATED METHOD 12/01/2024 11:58 PM [facility] Leukocytes, Urine Large(A) Negative LAB URINALYSIS - AUTOMATED METHOD 12/01/2024 11:58 PM [facility] Nitrite, Urine Negative Negative LAB URINALYSIS - AUTOMATED METHOD 12/01/2024 11:58 PM [facility] Protein, Urine 100(A) <=Trace mg/dL LAB URINALYSIS - AUTOMATED METHOD 12/01/2024 11:58 PM [facility] Glucose, Urine Negative Negative mg/dL LAB URINALYSIS - AUTOMATED METHOD 12/01/2024 11:58 PM [facility] Ketones, Urine Negative Negative mg/dL LAB URINALYSIS - AUTOMATED METHOD 12/01/2024 11:58 PM [facility] Urobilinogen , Urine 0.2 0.2 - 1.0 mg/dL LAB URINALYSIS - AUTOMATED METHOD 12/01/2024 11:58 PM T [facility] Bilirubin, Urine Negative Negative LAB URINALYSIS - AUTOMATED METHOD 12/01/2024 11:58 PM EDT [facility] Blood, Urine Moderate(A) Negative LAB URINALYSIS - AUTOMATED METHOD 12/01/2024 11:58 PM [facility] RBC, Urine 55.4(H) 0 - 4 /HPF LAB URINALYSIS - AUTOMATED METHOD 12/01/2024 11:58 PM [facility] WBC, Urine 273.4(H) 0 - 4 /HPF LAB URINALYSIS - AUTOMATED METHOD 12/01/2024 11:58 PM [facility] Squamous Epithelial, Urine 6 0 - 60 /LPF LAB URINALYSIS - AUTOMATED METHOD 12/01/2024 11:58 PM [facility] Bacteria, Urine Few(A) Negative /HPF LAB URINALYSIS - AUTOMATED METHOD 12/01/2024 11:58 PM [facility] Hyaline Casts, Urine 0.0 0 - 3 /LPF LAB URINALYSIS - AUTOMATED METHOD 12/01/2024 11:58 PM [facility] Urine Urine specimen obtained by clean catch procedure / Unknown Non-blood Collection / Unknown 12/01/2024 11:26 PM EDT 12/01/2024 11:50 PM EDT us Leslie Engle [employer] LAB URINE ORDERABLES Fin al Result [facility] [address] [place] [address], * Rene urine culture tube (12/01/2024 11:26 PM EDT) Extra Tube Hold for add-ons. 12/02/2024 1:04 AM EDT [facility] Comment:Auto resulted. Urine Urine specimen obtained by clean catch procedure / Unknown Non-blood Collection / Unknown 12/01/2024 11:26 PM EDT 12/01/2024 11:50 PM EDT Leslie Engle NP LAB URINE ORDERABLES Fin al Result Performing Organization Address [facility]/ZIP Co de Phone Number [facility] [address] [place] [address], [place] [phone] * (ABNORMAL) Culture urine (12/01/2024 11:26 PM EDT) Culture, Urine >=100,000 CFU/mL Enterococcus faecalis(A) MAHI 12/05/2024 7:35 AM EDT [facility] Comment: The organism value for this result has been updated. These results have been appended to the previously preliminary verified report. This is an edited result. Previous organism was Enterococcus species on 12/04/2024 at 0948 EDT. Urine Urine specimen obtained by clean catch procedure / Unknown Non-blood Collection / Unknown 12/01/2024 11:26 PM EDT 12/01/2024 11:58 PM EDT Narrative Organism Antibiotic Method Susceptibility Enterococcus faecalis Benzylpenicillin MAHI 2 ug/ml: Susceptible Enterococcus faecalis Ampicillin MAHI <=2 ug/ml: Susceptible Enterococcus faecalis Ciprofloxacin MAHI <=0.5 ug/ml: Susceptible Enterococcus faecalis Levofloxacin MAHI 1 ug/ml: Susceptible Enterococcus faecalis Linezolid MAHI 1 ug/ml: Susceptible Enterococcus faecalis Vancomycin MAHI 1 ug/ml: Susceptible Enterococcus faecalis Tetracycline MAHI >=16 ug/ml: Resistant Enterococcus faecalis Nitrofurantoin MAHI <=16 ug/ml: Susceptible us Leslie Engle NP LAB MICROBIOLOGY - GENER AL ORDERABLES Final Result Performing Organization Address City/[facility]/ZIP Co de Phone Number [facility] [address] [place] [address], [place] [phone] * [id number], RSV, Influenza A and B qualitative RT-PCR (12/01/2024 9:29 PM EDT) Influenza A PCR Not Detected Not Detected LAB MICROBIOLOGY METHOD 12/01/2024 10:47 PM EDT [facility] Influenza B PCR Not Detected Not Detected LAB MICROBIOLOGY METHOD 12/01/2024 10:47 PM EDT [facility] RSV PCR Not Detected Not Detected LAB MICROBIOLOGY METHOD 12/01/2024 10:47 PM EDT [facility] SARS COV-2 Not Detected Not Detected LAB MICROBIOLOGY METHOD 12/01/2024 10:47 PM EDT [facility] Swab Nasopharyngeal structure / Unknown Non-blood Collection / Unknown 12/01/2024 9:29 PM EDT 12/01/2024 10:01 PM EDT Narrative [facility] - 12/01/2024 10:47 PM EDT Disclaimer: Testing was performed using the [employer] GeneXpert Xpress SARS-CoV-2 _Flu_RSV PLUS PCR assay. The manner in which this information is used to guide patient care is the responsibility of the healthcare provider. Results should be correlated with the clinical history, epidemiological data, and other data available to the clinician evaluating the patient. Negative results do not preclude infection. This test has been authorized by the FDA under an Emergency Use Authorization (EUA). This test is only authorized for the duration of time the declaration that circumstances exist justifying the authorization of the emergency use of in vitro diagnostic tests for detection of SARS-CoV-2 virus and/or diagnosis of COVID-19 infection under section 564 (b) (1) of the Act, 21 U.S.C 360bbb-3 (b) (1), unless the authorization is terminated or revoked sooner. Reference Range: Not Detected Fact sheet for Healthcare providers can be found at https://www.fda.gov/media/161580/download. Fact sheet for Healthcare patients can be found at https://www.fda.gov/media/060666/download. Drew Ellison MD LAB MICROBIOLOGY - GENERAL ORDERABLES Final Result [facility] [address] [place] [address], [place] [phone] * Troponin I high sensitivity (12/01/2024 8:05 PM EDT) Only the most recent of2 resultswithin the time period is included. High Sensitivity Troponin I 12 <=54 ng/L LAB CHEMISTRY METHOD 12/01/2024 8:49 PM EDT [facility] Blood Venous blood specimen / Unknown Venipuncture / Unknown 12/01/2024 8:05 PM EDT 12/01/2024 8:22 PM EDT Narrative [facility] - 12/01/2024 8:49 PM EDT High levels of biotin in samples may falsely decrease hsTroponin values. Use caution when interpreting hsTroponin results in patients taking biotin who exhibit renal impairment (eGFR <60) or in patients taking more than 20 mg/day of biotin. us Flaco Ventura MD LAB BLOOD ORDERABLES Final Res ult Performing Organization Address [facility]/ZIP Co de Phone Number [facility] [address] [place] [address], [place] [phone] * CT Chest wo Contrast (12/01/2024 7:36 PM EDT) Only the most recent of2 resultswithin the time period is included. Anatomical Region Laterality Modality Body Computed Tomogra phy 12/01/2024 7:56 PM EDT Impressions 12/01/2024 7:56 PM EDT 1. Mild aneurysmal dilatation of the ascending thoracic aorta. 2. Possible moderate left hydronephrosis. This could be further assessed with ultrasound, if clinically indicated. 3. Multifocal ground-glass pulmonary nodules. Findings could indicate focal pneumonia /bronchiolitis. 4. Solid right apical nodule. 5. Follow up chest CT in 3 months is recommended for further assessment. 6. Coronary artery disease. This document has been electronically signed by: Paolo Verduzco MD on 12/01/2024 19:56:44 Narrative 12/01/2024 7:56 PM EDT INDICATION: Dyspnea, chronic, unclear etiology CT chest without contrast Comparison: None provided Findings: The heart size is normal. Calcification of the coronary vasculature. The visualized thyroid is within normal limits. 44 mm fusiform aneurysmal dilatation of the ascending thoracic aorta. No consolidation or effusion. Mild diffuse bronchial thickening. Ground-glass nodule within the left lower lobe posteriorly measuring 8 mm ( image 95). Calcified right apical nodule. Spiculated noncalcified right apical nodule measuring 4 mm (image 22). Ground-glass nodule within the left upper lobe anteriorly measuring 6 mm (image 38). Ground-glass nodule within the left apex posteriorly measuring 9 mm (image 22). Several scattered smaller nodules are present. Visualized portions of the upper abdomen demonstrate possible moderate left hydronephrosis. No acute fractures. Procedure Note Paolo Verduzco MD - 12/01/2024 INDICATION: Dyspnea, chronic, unclear etiology CT chest without contrast Comparison: None provided Findings: The heart size is normal. Calcification of the coronary vasculature. The visualized thyroid is within normal limits. 44 mm fusiformaneurysmal dilatation of the ascending thoracic aorta. No consolidation or effusion. Mild diffuse bronchial thickening. Ground-glass nodule within the left lower lobe posteriorly measuring 8mm ( image 95). Calcified right apical nodule. Spiculated noncalcifiedright apical nodule measuring 4 mm (image 22). Ground-glass nodule within the left upper lobe anteriorly measuring 6 mm (image 38). Ground-glassnodule within the left apex posteriorly measuring 9 mm (image 22). Several scattered smaller nodules are present. Visualized portions of the upper abdomen demonstrate possible moderate left hydronephrosis. No acute fractures. IMPRESSION: 1. Mild aneurysmal dilatation of the ascending thoracic aorta. 2. Possible moderate left hydronephrosis. This could be further assessed with ultrasound, if clinically indicated. 3. Multifocal ground-glass pulmonary nodules. Findings could indicate focal pneumonia /bronchiolitis. 4. Solid right apical nodule. 5. Follow up chest CT in 3 months is recommended for further assessment. 6. Coronary artery disease. This document has been electronically signed by: Paolo Verduzco MD on 12/01/2024 19:56:44 us Flaco Ventura MD IMG CT PROCEDURES Final Result * Procalcitonin (12/01/2024 6:41 PM EDT) Procalcitonin 0.04 <=0.16 ng/mL LAB CHEMISTRY METHOD 12/02/2024 7:37 AM EDT [facility] Blood Venous blood specimen / Unknown Venipuncture / Unknown 12/01/2024 6:41 PM EDT 12/01/2024 6:57 PM EDT Narrative [facility] - 12/02/2024 7:37 AM EDT Procalcitonin > 2.00 ng/ml: Procalcitonin Levels above 2.00 ng/ml, on the first day of ICU admission represent a high risk for progression to severe sepsis and/or septic shock. Procalcitonin < 0.50 ng/ml: Procalcitonin levels below 0.50 ng/ml on the first day of ICU admission represent a low risk for progression to severe sepsis and/or septic shock. Concentrations <0.5 ng/mL do not exclude an infection, on account of local ized infections (without systemic signs) which can be associated with such low concentrations, or a systemic infection in its initial stages (<6 hours). Furthermore, increased procalcitonin can occur without infection. PCT concentrations between 0.5 and 2.0 ng/mL should be interpreted taking into account the patient's history. It is recommended to retest PCT within 6-24 hours if any concentrations <2.0 ng/mL are obtained. Leslie Engle NP LAB BLOOD ORDERABLES Fin al Result [facility] [address] [place] [address], * C-reactive protein (12/01/2024 6:41 PM EDT) C-Reactive Protein <0.29 <=0.50 mg/dL LAB CHEMISTRY METHOD 12/01/2024 9:20 PM EDT [facility] Blood Venous blood specimen / Unknown Venipuncture / Unknown 12/01/2024 6:41 PM EDT 12/01/2024 6:57 PM EDT Drew Ellison MD LAB BLOOD ORDERABLES Final Result Performing Organization Address [facility]/ZIP Co de Phone Number [facility] [address] [place] [address], [place] [phone] * B-type natriuretic peptide (12/01/2024 6:41 PM EDT) BNP 26 <=100 pcg/mL LAB CHEMISTRY METHOD 12/01/2024 7:37 PM EDT [facility] Blood Venous blood specimen / Unknown Venipuncture / Unknown 12/01/2024 6:41 PM EDT 12/01/2024 6:57 PM EDT us Flaco Ventura MD LAB BLOOD ORDERABLES Final Res ult Performing Organization Address [facility]/ZIP Co de Phone Number [facility] [address] [place] [address], [place] [phone] * Magnesium (12/01/2024 6:41 PM EDT) Magnesium 2.1 1.9 - 2.6 mg/dL LAB CHEMISTRY METHOD 12/01/2024 7:31 PM EDT [facility] Blood Venous blood specimen / Unknown Venipuncture / Unknown 12/01/2024 6:41 PM EDT 12/01/2024 6:57 PM EDT us Flaco Ventura MD LAB BLOOD ORDERABLES Final Res ult Performing Organization Address City/[facility]/ZIP Co de Phone Number [facility] [address] [place] [address], [place] [phone] * Lipase (12/01/2024 6:41 PM EDT) Lipase 31 13 - 75 unit/L LAB CHEMISTRY METHOD 12/01/2024 7:31 PM [facility] Blood Venous blood specimen / Unknown Venipuncture / Unknown 12/01/2024 6:41 PM EDT 12/01/2024 6:57 PM EDT us Flaco Ventuar MD LAB BLOOD ORDERABLES Final Res ult [facility] [address] [place] [address], * (ABNORMAL) Comprehensive metabolic panel (12/01/2024 6:41 PM EDT) [facility] Sodium 142 133 - 145 mmol/L LAB CHEMISTRY METHOD 12/01/2024 7:31 PM [facility] Potassium 3.8 3.5 - 5.5 mmol/L LAB CHEMISTRY METHOD 12/01/2024 7:31 PM [facility] Chloride 108 96 - 110 mmol/L LAB CHEMISTRY METHOD 12/01/2024 7:31 PM [facility] CO2 26 21 - 32 mmol/L LAB CHEMISTRY METHOD 12/01/2024 7:31 PM [facility] Anion Gap 8 3 - 11 LAB CHEMISTRY METHOD 12/01/2024 7:31 PM [facility] Glucose 111(H) 70 - 100 mg/dL LAB CHEMISTRY METHOD 12/01/2024 7:31 PM [facility] BUN 15 5 - 25 mg/dL LAB CHEMISTRY METHOD 12/01/2024 7:31 PM [facility] Creatinine 0.81 0.50 - 1.10 mg/dL LAB CHEMISTRY METHOD 12/01/2024 7:31 PM [facility] eGFR 79 >=60 mL/min/1. 73m2 LAB CHEMISTRY METHOD 12/01/2024 7:31 PM EDT [facility] Comment:Calculation based on the Chronic Kidney Disease Epidemiology Collaboration (CKD-EPI) equation refit without adjustment for race. BUN/Creatinine Ratio 18.5 LAB CHEMISTRY METHOD 12/01/2024 7:31 PM EDT [facility] Calcium 9.7 8.5 - 10.5 mg/dL LAB CHEMISTRY METHOD 12/01/2024 7:31 PM [facility] AST (SGOT) 31 10 - 42 unit/L LAB CHEMISTRY METHOD 12/01/2024 7:31 PM [facility] ALT (SGPT) 55 10 - 60 unit/L LAB CHEMISTRY METHOD 12/01/2024 7:31 PM [facility] Alkaline Phosphatase 93 42 - 121 unit/L LAB CHEMISTRY METHOD 12/01/2024 7:31 PM [facility] Total Protein 7.2 6.0 - 8.0 g/dL LAB CHEMISTRY METHOD 12/01/2024 7:31 PM [facility] Albumin 4.1 3.2 - 5.0 g/dL LAB CHEMISTRY METHOD 12/01/2024 7:31 PM [facility] Total Bilirubin 0.9 0.0 - 1.4 mg/dL LAB CHEMISTRY METHOD 12/01/2024 7:31 PM [facility] Blood Venous blood specimen / Unknown Venipuncture / Unknown 12/01/2024 6:41 PM EDT 12/01/2024 6:57 PM EDT us Flaco Ventura MD LAB BLOOD ORDERABLES Final Res ult [facility] [address] [place] [address], [place] [phone] * ECG 12 lead (12/01/2024 6:29 PM EDT) Ventricular Rate ECG 70 BPM GEMUSE Atrial Rate 70 BPM GEMUSE P-R Interval 168 ms GEMUSE QRS Duration 100 ms GEMUSE Q-T Interval 420 ms GEMUSE QTc 453 ms GEMUSE P Wave [place] 50 degrees GEMUSE R [place] 38 degrees GEMUSE T [place] 86 degrees GEMUSE ECG Interpretation Sinus rhythm with Premature atrial complexes Nonspecific T wave abnormality Abnormal ECG When compared with ECG of 27-AUG-2015 15:33, Premature atrial complexes are now Present Confirmed by MD TOLLIVER JOHN ([id number]) on 12/02/2024 9:17:48 AM GEMUSE 12/01/2024 6:29 PM EDT 12/02/2024 9:17 AM EDT us Flaco Ventura MD ECG ORDERABLES Final Result GEMUSE * Pulmonary function testing: Carbon Monoxide Diffusing Capacity, Nitrogen Wash Out, Spirometry with Bronchodilator, Vital Capacity Test (11/15/2024 9:01 AM EDT) Impressions Racquel Galvez MD - 11/15/2024 9:01 AM EDT FEV1/FVC 82%. FEV1 1.64 at 65%. FVC 61%. No bronchodilator response. TLC 88%. RV 118%. RV/TLC 129%. DLCO 76% (84%) Stable flow-volume loop showed neither Intrathoracic nor extrathoracic obstruction. Mild obstruction with air trapping. No restriction. And mild decrease in diffusion. Findings consistent with mild obstructive lung disease. us Racquel Galvez MD PFT ORDERABLES Final Result * MG Mammo Digital Screening w Fermín bilat (11/08/2024 8:55 AM EDT) Anatomical Region Laterality Modality Breast Bilateral Mammography 11/09/2024 8:35 AM EDT Impressions 11/09/2024 8:39 AM EDT Benign. BI-RADS CATEGORY: 1 - NEGATIVE RECOMMENDATION: Screening bilateral mammogram is recommended in 1 year. Mammo Location: [facility], [address] [place] [address], [id number], . -------- FINAL REPORT -------- Dictated By: Ekaterina Wills Dictated Date: 11/09/2024 08:35 ET Assigned Physician: Ekaterina Wills Reviewed and Electronically Signed By: Ekaterina Wills Signed Date: 11/09/2024 08:39 ET Workstation ID: [id number] Transcribed By: Self Edit Transcribed Date: 11/09/2024 08:35 ET Narrative 11/09/2024 8:39 AM EDT CLINICAL: 69 years old, Female, routine annual exam. COMPARISON: Mammograms dating back to 10/08/2020 with most recent of 10/27/2023. TECHNIQUE: Bilateral MLO and CC views were obtained digitally with 3-D mammogram (digital breast tomosynthesis). Computer-aided detection was utilized in evaluation of this exam (CAD). FINDINGS: There is no evidence of suspicious mass or architectural distortion. No worrisome calcifications are evident. There has been no significant change from prior exam(s). BREAST DENSITY: B - There are scattered areas of fibroglandular density. Procedure Note Ekaterina Wills MD - 11/09/2024 CLINICAL: 69 years old, Female, routine annual exam. COMPARISON: Mammograms dating back to 10/08/2020 with most recent of10/27/2023. TECHNIQUE: Bilateral MLO and CC views were obtained digitally with 3-Dmammogram (digital breast tomosynthesis). Computer-aided detection wasutilized in evaluation of this exam (CAD). FINDINGS: There is no evidence of suspicious mass or architectural distortion. Noworrisome calcifications are evident. There has been no significantchange from prior exam(s). BREAST DENSITY: B - There are scattered areas of fibroglandular density. IMPRESSION: Benign. BI-RADS CATEGORY: 1 - NEGATIVE RECOMMENDATION: Screening bilateral mammogram is recommended in 1 year. Mammo Location: [facility], [address] [place] [address], [id number], . -------- FINAL REPORT -------- Dictated By: Ekaterina Wills Dictated Date: 11/09/2024 08:35 ET Assigned Physician: Ekaterina Wills Reviewed and Electronically Signed By: Ekaterina Wills Signed Date: 11/09/2024 08:39 ET Workstation ID: [id number] Transcribed By: Self Edit Transcribed Date: 11/09/2024 08:35 ET Lizet Le MD [facility] PROCEDURES Final Result * COLONOSCOPY Anesthesia - MAC; [facility] ENDOSCOPY (03/29/2024 1:00 PM EST) Anatomical Region Laterality Modality Endoscopy 03/29/2024 12:4 5 PM EST Impressions 03/29/2024 1:06 PM EST - Three diminutive polyps in the transverse colon, removed with a jumbo cold forceps. Resected and retrieved. - Internal hemorrhoids. Recommendation: - Await pathology results. - Repeat colonoscopy in 5 years for surveillance. Narrative 03/29/2024 1:06 PM EST [facility] Patient Name: Luisa Sharma Procedure [...] verified by the physician, the nurse, the quantitative developer and the thermal technician in the pre-procedure area in the [...] not prolapse). Procedure Code(s): --- Professional --- 63418, Colonoscopy, flexible; with biopsy, single or multiple Diagnosis Code(s): --- Professional --- D12.3, Benign neoplasm of transverse colon (hepatic flexure or splenic flexure) CPT copyright 2020 [employer]. All rights reserved. The codes documented in this report are preliminary and upon orthopedic coder review may be revised to meet current compliance requirements. Greg Beard MD 03/29/2024 1:06:14 PM This report has been signed electronically.Greg Beard MD Number of Addenda: 0 Note Initiated On: 03/29/2024 12:45 PM Scope Withdrawal Time: 0 hours 11 minutes 11 seconds Scope In: 12:49:32 PM Scope Out: 1:04:02 PM Endoscopy Department at [facility] - [address] [place] [phone] Procedure Note Greg Beard MD - 03/29/2024 [facility] Patient Name: Luisa Sharma Procedure [...] the physician, the nurse, theanesthetist and the thermal technician in the pre-procedure area in the [...] not prolapse). Procedure Code(s): --- Professional --- 28251, Colonoscopy, flexible; with biopsy, singleor multiple Diagnosis Code(s): --- Professional --- D12.3, Benign neoplasm of transverse colon (hepatic flexure or splenic flexure) CPT copyright 2020 [employer]. All rights reserved. The codes documented in this report are preliminary and upon orthopedic coder reviewmay be revised to meet current compliance requirements. Greg Beard MD 03/29/2024 1:06:14 PM This report has been signed electronically.Greg Beard MD Number of Addenda: 0 Note Initiated On: 03/29/2024 12:45 PM Scope Withdrawal Time: 0 hours 11 minutes 11 seconds Scope In: 12:49:32 PM Scope Out: 1:04:02 PM Endoscopy Department at [facility] - [address] [place] [phone] IMPRESSION: - Three diminutive polyps in the transverse colon, removed with a jumbo cold forceps. Resected and retrieved. - Internal hemorrhoids. Recommendation: - Await pathology results. - Repeat colonoscopy in 5 years for surveillance. us Greg Beard MD GI~PROCEDURE ORDERABLES Fin al Result * DXA BONE DENSITY STUDY 1+ [...] normal bone density by WHO criteria. [facility] Department of Internal Medicine recommends using National [...] alternative screening schedule based on kaleigh Flores., [facility] April 09, 2011 for patients with [...] normal bone density by WHO criteria. [facility] Department of Internal Medicine recommendsusing National Osteoporosis [...] FRAX. Optional alternative screening schedule based on betsy Flores al., [facility] for patients with osteopenia (based on hip BMD T-score) is as follows: * advanced osteopenia (T scores -2.00 to -2.49), BMD testing every year * moderate osteopenia (T scores -1.50 to -1.99), BMD testing every 5years mild osteopenia or normal BMD (T scores -1.50 and higher), BMD testingevery 15 years Mag[facility] DXA PROCEDURES Final Result from Last 3 Months or Most Recently Relevant to Health Maintenance Insurance MEDICARE Advance Directives Documents on File Type Date Recorded Patient Brand Marketing Coordinator Expl anation Advance Directives and Living Will 12/04/2024 9:00 AM Hans Sharma PROXY Health Care Decision (hx) 06/27/2014 AD RODRIGUEZ DIRECTIVE Health Care Decision (hx) 06/27/2014 AD RODRIGUEZ DIRECTIVE Health Care Decision (hx) 06/27/2014 AD RODRIGUEZ DIRECTIVE Health Care Decision (hx) 06/20/2014 AD RODRIGUEZ DIRECTIVE Health Care Decision (hx) 06/20/2014 AD RODRIGUEZ DIRECTIVE Health Care Decision (hx) 06/20/2014 AD RODRIGUEZ DIRECTIVE * Full Code - Confirmed (Latest Code Status on File) Date Activated Date Inactivated Comments 12/01/2024 10:21 PM 12/03/2024 11:45 AM This code status was ascertained in the following way: Code status discussion: discussion with patient To update the patient's code status, place a code status order. Do not modify or discontinue any currently active code status orders. * Full Code - Default Date Activated Date Inactivated Comments 12/01/2024 9:14 PM 12/01/2024 10:21 PM This is ord er is used when code status has not been discussed with the patient, or code status is otherwise unknown/unconfirmed To update the patient's code status, place a code status order. Do not modify or discontinue any currently active code status orders. Healthcare Agents on File Name Relationship Healthcare Agent Relationshi p Communication Hans Sharma Son Health Care Agent Lauren Sharma Relative First Alternate Health Care Agent Care Teams Juvenile Justice Specialist Relationship Specialty Start Date End Date Lizet Le MD [address] [place] [phone] PCP - General Internal Medicine 10/27/21
== END 2024-12-20 09:44 | disposition home or self-care (01) ==
LOC: HO.HSM 09:13
PROVIDERS: PCP Internal Medicine; Visit Provider Registered Nurse
DX: G62.9 Polyneuropathy, unspecified (principal); M51.9 Unspecified thoracic, thoracolumbar and lumbosacral intervertebral disc disorder
CPT/HCPCS: 99214

== ENCOUNTER → 2024-12-20 09:12 | Outpatient (BNVA) | payer MEDICARE, MEDICAID, SELFPAY | PROVIDERS: PCP Internal Medicine; Visit Provider Registered Nurse | DX: G62.9 Polyneuropathy, unspecified (principal); M51.9 Unspecified thoracic, thoracolumbar and lumbosacral intervertebral disc disorder | CPT/HCPCS: 99212 ==